=== PATIENT | female | born 1955 | race Caucasian/White ===

== ENCOUNTER 2021-03-29 14:08 | Outpatient (REF) | payer BC, SELFPAY ==
--- NOTE | ~2021-03-29 | MM_ITS ---
EXAMINATION: MM SCREENING DIGITAL BREAST TOMOSYNTHESIS, BILATERAL CLINICAL INFORMATION: Screening. Asymptomatic. Family history breast cancer, sister. Prior history left stereotactic biopsy 02/21/2010 (radial scar with focal ADH) status post excisional biopsy 03/07/2010. Also history benign left MR biopsy 12/14/2015 (benign fatty breast tissue with focal adenosis). The lifetime risk of breast cancer based on the Tyrer-Cuzick Model is 24%. COMPARISON: Mammography: 09/10/2019, 06/10/2018, 12/14/2015, 11/13/2015 TECHNIQUE: Digital breast tomosynthesis is performed in both the craniocaudal and mediolateral oblique views along with computer-aided detection (CAD). Synthesized 2D images are generated from the tomosynthesis. FINDINGS: There are scattered areas of fibroglandular density (ACR BI-RADS breast composition Category b). There are no significant masses, abnormal calcifications, or other abnormalities. Parenchymal pattern is similar to prior studies. No developing density. No skin significant changes. Again, there is a biopsy clip marker central lower left breast mid depth. MM/MM tomosynthesis screening BI IMPRESSION: No mammographic no evidence of malignancy. ASSESSMENT: BI-RADS 1: Negative RECOMMENDATION: 1. Routine annual mammography screening. 2. The lifetime risk of breast cancer based on the Tyrer-Cuzick Model is 24%. Additional annual adjunct screening with breast MRI may be of benefit in women with a risk score of 20% or greater. This patient's information was entered into a reminder system with a target due date for their next mammogram.
== END 2021-03-29 14:09 | disposition home or self-care (01) ==
LOC: HO.MAMMO 14:08
PROVIDERS: PCP Family Medicine; Visit Provider Family Medicine
DX: Z12.31 Encounter for screening mammogram for malignant neoplasm of breast (principal)
CPT/HCPCS: 77063; 77067

== ENCOUNTER 2022-04-01 13:29 | Outpatient (REF) | payer BC, SELFPAY ==
--- NOTE | ~2022-04-01 | MM_ITS ---
EXAMINATION: MM SCREENING DIGITAL BREAST TOMOSYNTHESIS, BILATERAL CLINICAL INFORMATION: Screening. Asymptomatic. 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 Benign left MR biopsy 2016 (focal adenosis). The lifetime risk of breast cancer based on the Tyrer-Cuzick Model is 23%. COMPARISON: Mammography: 03/29/2021, 09/10/2019, 06/10/2018 TECHNIQUE: Digital breast tomosynthesis is performed in both the craniocaudal and mediolateral oblique views along with computer-aided detection (CAD). Synthesized 2D images are generated from the tomosynthesis. FINDINGS: There are scattered areas of fibroglandular density (ACR BI-RADS breast composition Category b). Parenchymal pattern is similar to prior exams. There is a biopsy clip marker again noted central left breast. Neither breast shows developing density or interval mass or architectural abnormality. No abnormal calcifications. Skin contours are smooth. No significant changes. MM/MM tomosynthesis screening BI IMPRESSION: No mammographic evidence of malignancy. ASSESSMENT: BI-RADS 1: Negative RECOMMENDATION: Routine annual mammography screening. This patient's information was entered into a reminder system with a target due date for their next mammogram.
== END 2022-04-01 13:30 | disposition home or self-care (01) ==
LOC: HO.MAMMO 13:29
PROVIDERS: PCP Family Medicine; Visit Provider Family Medicine
DX: Z12.31 Encounter for screening mammogram for malignant neoplasm of breast (principal)
CPT/HCPCS: 77063; 77067

== ENCOUNTER → 2023-09-19 13:30 | Outpatient (BNV) | payer BC, SELFPAY | PROVIDERS: PCP Nurse Practitioner; Visit Provider Radiology Diagnostic Radiology | DX: Z12.31 Encounter for screening mammogram for malignant neoplasm of breast (principal) | CPT/HCPCS: 77063; 77067 ==

== ENCOUNTER 2023-09-19 13:34 | Outpatient (REF) | payer BC, SELFPAY ==
--- NOTE | ~2023-09-19 | MM_ITS ---
EXAMINATION: MM SCREENING DIGITAL BREAST TOMOSYNTHESIS, BILATERAL CLINICAL INFORMATION: Screening. Asymptomatic. The patient is status post left breast excision for atypical ductal hyperplasia into a radial scar in 2009. The patient had a benign left MRI biopsy in 2016. COMPARISON: Mammography: This study is compared with prior exams dating back to 2018. TECHNIQUE: Digital breast tomosynthesis is performed in both the craniocaudal and mediolateral oblique views along with computer-aided detection (CAD). Synthesized 2D images are generated from the tomosynthesis. FINDINGS: There are scattered areas of fibroglandular density (ACR BI-RADS breast composition Category b). There are no significant masses, abnormal calcifications, or other abnormalities. There is a tissue marker in the left breast from prior biopsy. MM/MM tomosynthesis screening BI IMPRESSION: No mammographic evidence of malignancy. ASSESSMENT: BI-RADS BI-RADS 2 - Benign Findings RECOMMENDATION: Routine annual mammography screening. 1 year F/U This examination should not preclude the clinical evaluation of a suspicious palpable abnormality. This patient's information was entered into a reminder system with a target due date for their next mammogram.
== END 2023-09-19 13:35 | disposition home or self-care (01) ==
LOC: HO.MAMMO 13:34
PROVIDERS: PCP Nurse Practitioner; Visit Provider Family Medicine
DX: Z12.31 Encounter for screening mammogram for malignant neoplasm of breast (principal)
CPT/HCPCS: 77063; 77067

== ENCOUNTER → 2024-12-17 09:30 | Outpatient (BNV) | payer BC, SELFPAY | PROVIDERS: PCP Nurse Practitioner; Visit Provider Internal Medicine | DX: N63.21 Unspecified lump in the left breast, upper outer quadrant (principal); N63.23 Unspecified lump in the left breast, lower outer quadrant | CPT/HCPCS: 76642; 77062; 77066 ==

== ENCOUNTER 2024-12-17 09:31 | Outpatient (REF) | payer BC, SELFPAY ==
--- NOTE | ~2024-12-17 | US_ITS ---
EXAMINATION: MM DIAGNOSTIC DIGITAL BREAST TOMOSYNTHESIS, BILATERAL Left breast ultrasound. CLINICAL INFORMATION: History of ADH status post left breast excisional biopsy. Left breast palpable lump noticed 2 months ago, pruritis of left nipple. Family history of breast cancer including sister. COMPARISON: Mammography: Comparison is made with relevant prior exams. TECHNIQUE: Digital breast mammography with tomosynthesis is performed in both the craniocaudal and mediolateral oblique views along with computer-aided detection (CAD). FINDINGS: There are scattered areas of fibroglandular density (ACR BI-RADS breast composition Category b). Left: Post excisional biopsy changes are stable. Marker clip in the left breast. BB marker retroareolar region with an underlying oval 6 mm mass. No suspicious calcifications or other abnormal findings. Targeted color Doppler ultrasound scanning in the left breast area of patient's palpable lump demonstrates at 3:00 2 cm from the nipple a subdermal oval hypoechoic solid mass versus complicated cyst measuring 6 x 3 x 3 mm. This could represent a minimally complicated cyst versus solid mass versus sebaceous cyst. Right: There are no significant masses, abnormal calcifications, or other abnormalities. Results are provided to the patient at time of visit by the technologist. US/US breast LT limited mamm only IMPRESSION: Right: Negative. Left: Hypoechoic oval solid mass versus complicated cyst at 3:00 2 cm from the nipple at the area of the patient's palpable lump. This could represent a minimally complicated cysts solid mass or sebaceous cyst. Recommend 6 month follow-up ultrasound for further evaluation of stability. ASSESSMENT: BI-RADS BI-RADS 3 - Probably benign finding(s) - 6 month follow-up suggested RECOMMENDATION: 6 Month F/U This patient's information was entered into a reminder system with a target due date for their next mammogram. Electronically signed by: Cathy Rodriguez DO 12/17/2024 10:34 AM EDT
--- OUTSIDE RECORDS SUMMARY | 2024-12-17 09:43 | XMS_ITS | Data Portability ---
Author Organization [place] [facility], [facility] - INPATIENT Address [address] [place] [address] Care Team Providers Care Card Decorator Name Role Phone MIRIAM LEDBETTER Primary Care Provider Assessment Encounter Date Assessment Date Assessment LastModified by Organization Details LastModified Time 01/29/2024 01/29/2024 Imaging: Radiographs obtained in outside facility on 12/11/2023 including AP pelvis and left frog-leg lateral were reviewed. These demonstrate fairly significant left hip joint space narrowing with osteophyte formation and subchondral sclerosis. A left hip MRI was obtained at an outside facility on 01/13/2024 and independently reviewed today. This demonstrates evidence of fairly advanced left hip osteoarthritis with cartilage loss, subchondral cysts, and osteophytes. There is also evidence of a mild impaction fracture of the superior femoral head with extensive marrow edema and mild femoral head flattening. There is a fluid collection in the left iliopsoas myotendinous junction. Assessment: Left hip pain likely due to advanced osteoarthritis as well as a traumatic impaction fracture status post mechanical fall. Plan: The findings were reviewed with the patient. Discussed that she does have fairly advanced degenerative changes as well as likely traumatic injuries to the left hip. Given that she has significant pain with daily activities and had no relief with conservative measures including a steroid injection I would not recommend any further conservative measures. I would recommend more definitive treatment with a left total hip arthroplasty, anterior approach. The perioperative course of total hip arthroplasty was discussed in detail including risk versus benefits of surgical intervention. The patient expressed understanding wishes to proceed. Will plan to move forward with a left total hip arthroplasty, anterior at [facility]. She is in agreement with this plan. All questions were answered. [email or web address] Not available 03/05/2024 17:23:16 Plan of Treatment Reminders Order Date Submit Date Provider Last Modified By Organization Details Last Modified Time Details Appointments None recorded. Lab None recorded. Referral None recorded. Procedures None recorded. Surgeries None recorded. Imaging None recorded. Medication Orders oxycodone 5 mg tablet 2022 023 [email or web address] 5 [facility], [address] [place], [address], 4 11:42:54 Patient TargetsNo targets recorded. Patient InstructionsNo instructions recorded. Reason for Referral None Reported. Results Created Date Observation Date Name Description Value Unit Range Abnormal Flag Note LastModifiedBy Organization Detail LastModifiedTime 09/13/1909/13/2022 SURG surgical specimens Case No :[id number] Patie nt: INOCENCIA BRENNAN Physi pat: Gosia naqvi MD,An dominik J [facility] Rec: [id number] : 11/15 Loc: [facility]# [id number] Age/S ex: 66/F Proc Date: 09/13 Recd Date: 09/16 CLINI MICHELL HISTO RY:Os teoar thrit is left knee. Tissu e Sourc e: Left knee bone and soft tissu e ----- ----- ----- ----- ----- ----- ----- ----- ----- ----- ----- ----- ----- ----- ----- ----- ----- ----- -- FINAL DIAGN OSIS Left knee joint : Angel armas consi stent with osteo arthr itis (sree s descr iptio n only) . ----- ----- ----- ----- ----- ----- ----- ----- ----- ----- ----- ----- ----- ----- ----- ----- ----- ----- -- GROSS DESCR IPTIO N The speci men is recei reggie fresh , label ed with the patie nt's name and left knee bone and tissu e . It consi sts of multi ple fragm ents of bone and soft tissu e measu ring in aggre gate 10 x 9.5 x 3.5 cm. Among the bony fragm ents, porti ons of tibia l plate au and femor al condy les are ident ified . The artic ular surfa teresa show areas of eburn ation , with the remai andrews carti phi being rough and velve ty. Osteo phyto sis is seen. Upon secti oning the soft tissu e, no nodul es are ident ified . Gross only. Krystina duncan ___(E lectr sirisha duncan)___ _ STARR ROMAN M.D. 09/18 ----- ----- ----- ----- ----- ----- ----- ----- ----- ----- ----- ----- ----- ----- ----- ----- ----- ----- -- END OF REPOR T Not Available [facility] (Lab) [address], [place], [address], 09/18/2022 17:32:50 04/02/20 24 04/02/2024 CBC WBC 8.18 K/uL 4.00-1 1.00 Not Available [facility] - Lab [address], [place], [address], 04/02/2024 13:21:20 04/02/20 24 04/02/2024 CBC RBC 4.55 M/uL 3.60-5 .30 Not Available [facility] - Lab [address], [place], [address], 04/02/2024 13:21:20 04/02/20 24 04/02/2024 CBC hemoglobin 14.6 g/dL 12.0-1 6.0 Not Available [facility] - Lab [address], [place], [address], 04/02/2024 13:21:20 04/02/20 24 04/02/2024 CBC hematocrit 42.9 % 36.0-4 8.0 Not Available [facility] - Lab [address], [place], [address], 04/02/2024 13:21:20 04/02/20 24 04/02/2024 CBC MCH 32.1 pg 27.0-3 4.0 Not Available [facility] - Lab [address] [place] [address], [place], [address], 04/02/2024 13:21:20 04/02/20 24 04/02/2024 CBC MCHC 34.0 g/dL 31.0-3 6.0 Not Available [facility] - Lab [address] [place] [address], [place], [address], 04/02/2024 13:21:20 04/02/2004/02/2024 CBC MCV 94 fL 80-98 Not Available [facility] - Lab [address] [place] [address], [place], [address], 04/02/2024 13:21:20 04/02/2004/02/2024 CBC RDW 12.1 % 11.5-1 4.5 Not Available [facility] - Lab [address], [place], [address], 04/02/2024 13:21:20 04/02/2004/02/2024 CBC platelet count 309 K/uL 150-40 0 Not Available [facility] - Lab [address], [place], [address], 04/02/2024 13:21:20 04/02/20 24 04/02/2024 CBC mean platelet volume 8.9 fL 9.4-12 .4 low Not Available [facility] - Lab [address], [place], [address], 04/02/2024 13:21:20 04/02/20 24 04/02/2024 CBC RDW-SD 42.4 fL 35.1-4 6.3 Not Available [facility] - Lab [address], [place], [address], 04/02/2024 13:21:20 04/02/20 24 04/02/2024 BASIC METAB OLIC PANEL sodium 139 mmol/ L 135-14 5 Not Available [facility] - Lab [address], [place], [address], 04/02/2024 13:30:34 04/02/20 24 04/02/2024 BASIC METAB OLIC PANEL potassium 4.7 mmol/ L 3.5-5. 3 Not Available [facility] - Lab [address], [place], [address], 04/02/2024 13:30:34 04/02/20 24 04/02/2024 BASIC METAB OLIC PANEL chloride 103 mmol/ L 100-11 2 Not Available [facility] - Lab [address], [place], [address], 04/02/2024 13:30:34 04/02/20 24 04/02/2024 BASIC METAB OLIC PANEL total CO2 26 mmol/ L 21-30 Not Available [facility] - Lab [address], [place], [address], 04/02/2024 13:30:34 04/02/20 24 04/02/2024 BASIC METAB OLIC PANEL anion gap 10 mmol/ L 4-20 Not Available [facility] - Lab [address], [place], [address], 04/02/2024 13:30:34 04/02/20 24 04/02/2024 BASIC METAB OLIC PANEL BUN 14 mg/dL 6-20 Not Available [facility] - Lab [address], [place], [address], 04/02/2024 13:30:34 04/02/20 24 04/02/2024 BASIC METAB OLIC PANEL creatinine 0.80 mg/dL 0.00-1 .30 Not Available [facility] - Lab [address], [place], [address], 04/02/2024 13:30:34 04/02/20 24 04/02/2024 BASIC METAB OLIC PANEL glucose 102 mg/dL 70-105 Not Available [facility] Lab [address], [place], [address], 04/02/2024 13:30:34 04/02/20 24 04/02/2024 BASIC METAB OLIC PANEL calcium 10.0 mg/dL 8.4-10 .2 Not Available [facility] Lab [address], [place], [address], 04/02/2024 13:30:34 04/02/20 24 04/02/2024 BASIC METAB OLIC PANEL estimated GFR (CKD-epi) 80 mL/mi n/bsa >=60 Not Available [facility] Lab [address], [place], [address], 04/02/2024 13:30:34 04/02/20 24 04/02/2024 MRSA/ SA BY PCR MRSA/SA by PCR Negati ve for Methic illin Resist ant Staphy lococc us aureus . negati ve for methic illin resist ant staphy lococc us aureus . Not Available [facility] Lab [address], [place], [address], 04/02/2024 16:42:52 04/09/20 24 04/09/2024 SURGI MICHELL PATHO LOGY TISSU E EXAM lab AP case report Surgi michell Patho logy Repor t Case: [id number] CASE REPOR T Surgi michell Patho logy Repor t Case: [id number] Autho stella nelli Provi kay: Hayden naqvi MD Colle cted: 04/09 12:15 PM Order ing Locat ion: [facility] Recei reggie: 04/09 02:57 PM Hospi [facility] [place] Patho logis t: Starr Roman MD Speci men: Joint , Hip, Left hip bone and tissu e FINAL DIAGN OSIS Left hip joint : Ortiz es consi stent with osteo arthr itis (sree s descr iptio n only) . Elect blas kellee fowlere d by Starr Roman MD on 2023 at 4:42 PM BILH CLINI MICHELL INFOR MATIO N Pre-o p diagn osis: Left hip osteo arthr itis LH LAB GROSS DESCR IPTIO N The speci men is recei reggie fresh , label ed with the patie nt's name and left hip bone and tissu e . It consi sts of a femor al head, bone grind ings and soft tissu e measu ring 9 x 8.5 x 4 cm in aggre gate. The femor al head measu res [address] and is resec guzman with up to a 1.5 cm of attac hed femor al neck. The artic ular surfa ce shows areas of eburn ation of appro ximat tristan 40%, with the remai andrews carti phi being rough and velve ty. Osteo phyto sis is seen. Secti oning demon strat es subch ondra l scler osis under neath the eburn ated areas . Upon secti oning the soft tissu es, no nodul es are ident ified . Gross only. Not Available [facility] - Lab [address], [place], [address], 04/12/2024 16:42:28 04/10/20 24 04/10/2024 CBC WBC 11.41 K/uL 4.00-1 1.00 high Not Available [facility] - Lab [address], [place], [address], 04/10/2024 09:28:00 04/10/20 24 04/10/2024 CBC RBC 3.30 M/uL 3.60-5 .30 low Not Available [facility] - Lab [address], [place], [address], 04/10/2024 09:28:00 04/10/20 24 04/10/2024 CBC hemoglobin 10.3 g/dL 12.0-1 6.0 low Not Available [facility] - Lab [address], [place], [address], 04/10/2024 09:28:00 04/10/20 24 04/10/2024 CBC hematocrit 31.5 % 36.0-4 8.0 low Not Available [facility] Lab [address], [place], [address], 04/10/2024 09:28:00 04/10/20 24 04/10/2024 CBC MCH 31.2 pg 27.0-3 4.0 Not Available [facility] Lab [address], [place], [address], 04/10/2024 09:28:00 04/10/20 24 04/10/2024 CBC MCHC 32.7 g/dL 31.0-3 6.0 Not Available [facility] - Lab [address], [place], [address], 04/10/2024 09:28:00 04/10/20 24 04/10/2024 CBC MCV 96 fL 80-98 Not Available [facility] [address], [place], [address], 04/10/2024 09:28:00 04/10/20 24 04/10/2024 CBC RDW 12.2 % 11.5-1 4.5 Not Available [facility] Lab [address], [place], [address], 04/10/2024 09:28:00 04/10/20 24 04/10/2024 CBC platelet count 208 K/uL 150-40 0 Not Available [facility] Lab [address], [place], [address], 04/10/2024 09:28:00 04/10/20 24 04/10/2024 CBC mean platelet volume 9.1 fL 9.4-12 .4 low Not Available [facility] - Lab [address], [place], [address], 04/10/2024 09:28:00 04/10/20 24 04/10/2024 CBC RDW-SD 42.5 fL 35.1-4 6.3 Not Available [facility] Lab [address], [place], [address], 04/10/2024 09:28:00 04/10/20 24 04/10/2024 BASIC METAB OLIC PANEL sodium 139 mmol/ L 135-14 5 Not Available [facility] - Lab [address], [place], [address], 04/10/2024 10:18:15 04/10/20 24 04/10/2024 BASIC METAB OLIC PANEL potassium 4.4 mmol/ L 3.5-5. 3 Not Available [facility] Lab [address], [place], [address], 04/10/2024 10:18:15 04/10/20 24 04/10/2024 BASIC METAB OLIC PANEL chloride 105 mmol/ L 100-11 2 Not Available [facility] Lab [address], [place], [address], 04/10/2024 10:18:15 04/10/20 24 04/10/2024 BASIC METAB OLIC PANEL total CO2 28 mmol/ L 21-30 Not Available [facility] Lab [address], [place], [address], 04/10/2024 10:18:15 04/10/20 24 04/10/2024 BASIC METAB OLIC PANEL anion gap 6 mmol/ L 4-20 Not Available [facility] - Lab [address], [place], [address], 04/10/2024 10:18:15 04/10/20 24 04/10/2024 BASIC METAB OLIC PANEL BUN 17 mg/dL 6-20 Not Available [facility] - Lab [address], [place], [address], 04/10/2024 10:18:15 04/10/20 24 04/10/2024 BASIC METAB OLIC PANEL creatinine 0.70 mg/dL 0.00-1 .30 Not Available [facility] - Lab [address], [place], [address], 04/10/2024 10:18:15 04/10/20 24 04/10/2024 BASIC METAB OLIC PANEL glucose 132 mg/dL 70-105 high Not Available [facility] Lab [address], [place], [address], 04/10/2024 10:18:15 04/10/20 24 04/10/2024 BASIC METAB OLIC PANEL calcium 8.7 mg/dL 8.4-10 .2 Not Available [facility] Lab [address], [place], [address], 04/10/2024 10:18:15 04/10/20 24 04/10/2024 BASIC METAB OLIC PANEL estimated GFR (CKD-epi) 94 mL/mi n/bsa >=60 Not Available [facility] Lab [address], [place], [address], 04/10/2024 10:18:15 04/10/20 24 04/10/2024 MAGNE SIUM magnesium 2.0 mg/dL 1.6-2. 6 Not Available [facility] Lab [address], [place], [address], 04/10/2024 10:18:25 12/27/19 22 12/26/2021 XR, knee http:/ [email or web address] ntegra tionPr ocesso r.aspx ?CMD=O PENSTU DY&ACC ESSION =[id number] [email or web address] [address], [address], 12/26/2021 14:45:18 04/08/20 22 04/08/2022 XR, knee http:/ [email or web address]/I ntegra tionPr ocesso r.aspx ?CMD=O PENSTU DY&ACC ESSION =[id number] [email or web address], [address], 04/08/2022 15:56:12 08/07/20 22 08/07/2022 leg2+ joint s surve y 3FT Fin al Report EXAM#: [id number] 4 PROCED URE: RADHA 0122 XR LEG2+ JOINTS SURVEY 3FT Aug 07 2022 1:28PM CLINIC AL INDICA TION: L KNEE OA There is a right TKA in place. Degene rative change s are presen t in the left knee with comple te loss of the medial joint compar tment space and cortic al irregu larity of the articu lar surfac es of the medial and latera l joint compar tments . The hip and the ankle joints are unrema rkable . NUMBER OF IMAGES : 4 Report ed by : MERYL GRANADOS M.D. On: Aug 07 2022 1:46P Signed by: MERYL GRANADOS M.D. On: Aug 07 2022 1:46P [email or web address] [facility] [address], [place], [address], 08/08/2022 08:50:48 01/29/20 24 01/13/2024 MRI, hip, w/o contr ast No observ ation record ed. [email or web address] Not Available 01/28 11:37:15 Result Notes None recorded. Procedures Surgical History Date Name Laterality Status Provider Name and Address Organization Details Recorded Time 04/09/20 24 Orthopaedic Surgery completed Alexandre Hernandez [facility] 04/28/2024 13:21:25 09/13/19 23 Total knee arthroplasty completed Pita Marvin [facility] 09/20/2022 12:21:14 11/24/19 22 [facility] 12/18/2021 16:02:20 08/25/19 14 Other completed [facility] 08/27/2021 11:29:50 Imaging Results Imaging Date Name Status LastModified by Organiz ation Details LastModified Time 12/26/2021 XR, knee completed [email or web address] [facility] [address], [address], 12/26/2021 14:45:18 04/08/2022 XR, knee completed [email or web address] [address], [address], 04/08/2022 15:56:12 08/07/2022 leg2+ joints survey 3FT completed [email or web address] [facility] [address] [place], [address], 08/08/2022 08:50:48 01/13/2024 MRI, hip, w/o contrast completed [email or web address] Information not available 01/29/2024 11:37:15 Procedure Notes None recorded. Medical Equipment None Reported. Allergies No known drug allergies Medications Name Sig Start Date Stop Date Status Note LastModified by Organization Details LastModified Time lisinopril 20 mg tablet Take 1 tablet every day by oral route. active Not Available Not Available No t Available Wellbutrin SR 100 mg tablet, 12 hr sustained-r elease Take 1 tablet twice a day by oral route. active Not Available Not Available No t Available modafinil 200 mg tablet Take 1 tablet every day by oral route. active Not Available Not Available No t Available methocarbam ol 750 mg tablet 1 tablet PO Q8H PRN muscle spasms 01/28 completed Not Available Not Available Not Available omeprazole 20 mg capsule,del ayed release Take 1 capsule every day by oral route. active Not Available Not Available No t Available oxycodone 5 mg tablet 1 tablet PO Q4-6H PRN postop pain, take lowest dose necessary for pain control 05/26 completed Not Available Not Available Not Available Vitamin B6 100 mg tablet Take by oral route. active Not Available Not Available No t Available buprenorphi ne 2 mg-naloxone 0.[address] 2 tablets every day by sublingua l route. active Not Available Not Available No t Available Cymbalta 60 mg capsule,del ayed release Take 1 capsule every day by oral route. active Not Available Not Available No t Available Vitamin B12 active Not Available Not A vailable Not Available Pradaxa 150 mg capsule Take 1 capsule twice a day by oral route. active Not Available Not Available No t Available Zomig 2.5 mg nasal spray Take by nasal route. active Not Available Not Available No t Available tramadol 100 mg tablet Take 1 tablet every 12 hours by oral route. 05/26 completed Not Available Not Available Not Available Vitals Date Recorded Body height Body mass index (BMI) Body weight Provider Name and Address Organization Details Last Updated DateTime 12/26/2021 167.64 cm 30.7 kg/m2 36580.55 g AISLINN RIVERA [address] [place] [address] [facility] 12/26/2021 13:20:19 Date Recorded Body height Provider Name an d Address Organization Details Last Updated DateTime 04/08/2022 167.64 cm Tuyet [facility] 04/08/2022 12:52:31 Date Recorded Body height Body mass index (BMI) Body weight Provider Name and Address Organization Details Last Updated DateTime 10/16/2022 167.64 cm 30.7 kg/m2 04203.55 g AISLINN RIVERA [address] [place] [address] [facility] 10/16/2022 13:59:38 Date Recorded Body height Body mass index (BMI) Body weight Provider Name and Address Organization Details Last Updated DateTime 01/29/2024 167.64 cm 29.4 kg/m2 42097.81 g Fouzia Antonio [facility] 01/29/2024 11:42:27 Date Recorded Body height Body mass index (BMI) Body weight Provider Name and Address Organization Details Last Updated DateTime 05/26/2024 167.64 cm 29.9 kg/m2 32252.59 g AISLINN RIVERA [address] [place] [address], [id number], [facility] 05/26/2024 15:16:02 Social History Question Answer Notes LastModified by Organizat ion Details LastModified Time Tobacco Smoking Status Former Smoker Pita Marvin [facility], [facility] 08/27/2021 11:29:47 What Is Your Level Of Alcohol Consumption? Moderate Information not available 08/27/2021 What Is Your Level Of Caffeine Consumption? Moderate Information not available 08/27/2021 Are You Currently Employed? Yes [email or web address] Information not available 01/29/2024 Do You Or Have You Ever Used E-cigarettes Or Vape? 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 Yes Information not available 08/27/2021 Do You Or Have You Ever Used Smokeless Tobacco? Never Used Smokeless Tobacco Information not available 08/27/2021 How Much Tobacco Do You Smoke? No Information not available 08/27/2021 What Types Of Sporting Activities Do You Participate In? None Information not available 08/27/2021 How Many Years Have You Smoked Tobacco? 25 Information not available 08/27/2021 Sex: Unknown Functional Status Question Answer Note LastModified by Organizat ion Details LastModified Time What is your exercise level? Occasional Information not available 08/27/2021 Mental Status None recorded. Family History Relationship Description Onset Age of this Age Resolved Age Notes LastModified by Organization Details LastModified Time Father Pulmonary embolism Not available 10/2021 11:29:42 Mother Deep venous thrombosis [email or web address] Not available 10/2021 11:29:42 Mother Phlebitis [email or web address] Not avail able 08/27/2021 11:29:42 Medical History Condition Response Blood Clots / Phlebitis Y Heart Problems N HIV or AIDS N Depression or Anxiety N High Blood Pressure Y Irregular Heartbeat N MRSA N Emphysema / Chronic Bronchitis N Any Other Significant Medical Issues N Reaction to General/Local Anesthesia N Weight Gain / Loss N Hepatitis / Jaundice N Kidney / Bladder Infections N Diabetes N Bleeding Disorder Y Hearing Loss N Angina, Heart Failure or Attack N Night Sweats N Seizures / Epilepsy N Osteoarthritis / Rheumatoid arthritis / Other Y Cancer N Stroke N Chemical Dependency / Alcoholism N Ulcer / Stomach Bleeding / Indigestion N Visual Loss or Glaucoma N Psoriasis / Skin Rash N Thyroid Disorder Y Heart Disease N Asthma / Shortness of Breath / 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 Obstetrics History GPAL:G 0 P 0 0 0 0 Immunizations Vaccine Type Date Status Note Provider Nam e and Address Organization Details Recorded Time COVID-19, mRNA, LNP-S, PF, 30 mcg/0.3 mL dose 1 completed Pita little, [facility] 08/27/2021 11:38:23 COVID-19, mRNA, LNP-S, PF, 30 mcg/0.3 mL dose 1 completed Pita little, [facility] 08/27/2021 11:38:30 COVID-19, mRNA, LNP-S, PF, 30 mcg/0.3 mL dose 1 completed Pita little, [facility] 08/27/2021 11:38:40 Influenza, split virus, quadrivalent, preservative 1 completed Pita little, [facility] 08/27/2021 11:38:53 Past Encounters Encounter ID Performer Location Encounter Start Date Encounter Closed Date Diagnosis/Indication Diagnosis SNOMED-CT Code Diagnosis ICD10 Code Diagnosis Note [id number] СЕРГЕЙ GALVAN MD [facility] Office [address] [place] [address] [id number] 08/27/2021 10:19:04 08/27/2021 12:17:26 Bilateral osteoarthritis of knees [id number] 78891 M17.0 [id number] AISLINN RIVERA [facility] [address] [place] [address] [id number] 1 12/26/2021 12:38:05 12/26/2021 14:02:00 Osteoarthritis of right knee joint [id number] 27558 M17.11 The patient is doing very well s/p right TKA. We discussed reasonable activity at this point in recovery. The patient will complete a course of outpatient PT and transition to a home exercise program. The patient understand s to wait 90 days from the day of surgery before having dental work and was reminded of antibiotic prophylaxi s prior to dental procedures . The patient knows to follow-up at 4 months postop and agrees to call the office sooner with any new developmen ts, questions or concerns. [id number] СЕРГЕЙ GALVAN MD [facility] [address] [place] [address] [id number] 1 04/08/2022 12:32:53 04/08/2022 16:55:27 Bilateral osteoarthritis of knees [id number] 10668 M17.0 [id number] AISLINN RIVERA [facility] [address] [place] [address] [id number] 10/16/2022 13:14:33 10/16/2022 14:35:15 Osteoarthritis of left knee joint [id number] 94848 M17.12 The patient is doing well s/p left TKA. We discussed reasonable activity at this point in recovery. T I encouraged her to t focus on managing pain and weaning from oxycodone. She understand s to wean from oxycodone over the next 2 weeks. I will provide her with a refill today. She will supplement with Salonpas patches and Tylenol around-the -clock. She will attend outpatient PT. The patient understand s to wait 90 days from the day of surgery before having dental work and was reminded of antibiotic prophylaxi s prior to dental procedures . The patient knows to follow-up at 4 months postop and agrees to call the office sooner with any new developmen ts, questions or concerns. [id number] AISLINN MAHMOOD [facility] [address] [place] [phone] 01/29/2024 11:23:45 01/29/2024 15:23:13 Osteoarthritis of left hip joint [id number] M16.12 [id number] AISLINN RIVERA [facility] [address] [place] [phone] 05/26/2024 14:34:09 05/27/2024 09:16:02 Osteoarthritis of left hip joint [id number] M16.12 The patient is doing well s/p LON. We discussed reasonable activity at this point in recovery. {{The patient will complete a course of outpatient PT.*}} She will plan to reach out to us once she feels she is ready to return to work to further discuss a plan in that regard. The patient understand s to wait 90 days from the day of surgery before having dental work and was reminded of antibiotic prophylaxi s prior to dental procedures . The patient knows to follow-up at {{4 months postop one year postop*}} and agrees to call the office sooner with any new developmen ts, questions or concerns. Health Concerns Section Related Observation LastModified by Organization Detai ls LastModified Time None Recorded Concern Status LastModified by Organization Details LastModified Time None Recorded Advance Directives Directive None Recorded Payers Encounter Date Sequence Insurance Name Policy Number Policy Haw[employer]orne Covered Member ID [employer] Member ID Guarantor Name 12/26/2021 1 [place] [id number] Sarmad Chandra [id number] Twyla Geoffrion 04/08/2022 1 [place] [id number] Sarmad Chandra [id number] Twyla Geoffrion 10/16/2022 1 [place] [id number] Sarmad Chandra [id number] Twyla Geoffrion 01/29/2024 1 [place] [id number] 4 Sarmad Chandra [id number] 04 Twyla Geoffrion 05/26/2024 1 [place] [id number] 4 Sarmad Chandra [id number] Twyla Galeanoangus Notes Date Note Type Note Provider Name and Address Organization Details Recorded Time 12/26/2021 text/html Pt is 4 weeks s/ p {{left right* bilate ral}} TKA presenting today without complaints. The patient is ambulating without the use of an assistive device. Reports improvement in pain over the last 4 weeks and has weaned from narcotics. Satisfied with progress with physical therapy. Sleep has improved. AISLINN RIVERA [address] [place] [address], [phone], [facility] 12/26/2021 13:58:31 10/16/2022 text/html Pt is 4 weeks s/ p {{left* right bilate ral}} TKA presenting today for routine follow-up. The patient is ambulating without the use of an assistive device. Reports improvement in pain, but recently had a setback after mechanical fall and hyperextension to this knee. S She continues to take oxycodone s every 6 hours along with Tylenol. She avoids NSAIDs as she is on chronic Pradaxa. She is supplementing with Salonpas. She reports some increased swelling and pain to the knee since this injury. She has completed her course of at home PT and has plans to begin outpatient PT tomorrow. She still has difficulty with pain at night. AISLINN RIVERA [address] [place] [address], [phone], [facility] 10/16/2022 14:28:44 01/29/2024 text/html Twyla presents today for evaluation of her left hip. She reports a mechanical fall in September that initially resulted in left hip pain that did improve. However, she was then pulled while walking a dog in October which resulted in a fairly significant fall on the driveway. After that she began to develop fairly significant left hip pain. This causes significant difficulty with walking, stairs, sleeping, and prolonged sitting. She reports that the hip feels unstable. She underwent an intra-articular steroid injection under ultrasound guidance in November that did not provide any lasting relief. She underwent evaluation at an outside facility more local to her home. She presents today for further evaluation. AISLINN MAHMOOD [address] [place] [address], [phone], [facility] 03/05/2024 17:24:52 05/26/2024 text/html Pt is 6 weeks s/ p {{left* right}} LON presenting today for routine follow-up. The patient is ambulating without the use of an assistive device. Reports improvement in pain over the last 6 weeks. She reports worsening of her restless leg syndrome since surgery which is affecting her sleep. AISLINN RIVERA [address] [place] [address], [place], [phone], [facility] 05/26/2024 15:54:27 OBGyn Episode No OBEpisode recorded.
== END 2024-12-17 09:32 | disposition home or self-care (01) ==
LOC: HO.MAMMO 09:31
PROVIDERS: PCP Nurse Practitioner; Visit Provider Nurse Practitioner
DX: R92.8 Other abnormal and inconclusive findings on diagnostic imaging of breast (principal)
CPT/HCPCS: 76642; 77062; 77066

== ENCOUNTER 2025-01-25 10:24 | Outpatient (AMB) | payer BC, SELFPAY ==
--- NOTE | 2025-01-25 10:27 | MHC.OFFVIS ---
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 Patient has CT ABD/Pelvis on 01/06/2025. No complaints. 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 The CT was conducted for gastrointestinal issues linked to diverticulosis. . Her significant medical history includes homocystinuria, previously treated thromboses in various locations, and a hospitalization for bilateral pulmonary embolism in 2005. 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 Post-hip replacement surgery, the patient experienced significant hemorrhage, which led to prolonged anemia. 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 Her anticoagulation history includes use of Pradaxa due to insurance preferences after Coumadin proved ineffective. Her insurance restrictions also impact her ability to switch to Eliquis. Given these factors, the patient seeks expert evaluation on the potential need for intervention and surveillance regarding her aortic condition. She now presents for vascular evaluation Review of Systems Const All systems reviewed & are unremarkable except as noted in HPI and below Reports no additional complaints ENT Reports Normal hearing present Card Denies chest pain, Denies chest pain at rest, Denies chest pain with activity and Denies pedal edema Resp Denies cough GI Denies abdominal pain Musc Denies abnormal gait, Denies muscle cramps and Denies radiating pain into limb Skin/Breast Denies skin ulcer and Denies wounds Neuro Reports Normal hearing present and Denies abnormal gait Psych Reports no additional complaints Physical Exam Const General: cooperative, healthy appearing and comfortable Orientation/consciousness: oriented to person, oriented to place and oriented to time HEENT Head: Yes normal to inspection Neck Neck: Yes normal visual inspection Carotids: no bruits Chest Chest palpation & inspection: normal inspection of the chest Resp Effort & Inspection: normal respiratory effort and able to speak in complete sentences Auscultation: clear to auscultation bilaterally, no crackles, no rales, no rhonchi and no wheezes Cardio Rate: regular rate Rhythm: regular rhythm Heart sounds: S1 normal heart sound present and S2 normal heart sound present Bruits: no carotid bruits Peripheral pulses: Peripheral pulses 2+ throughout GI Inspection: Yes normal to inspection Skin Wounds: no wounds Hair: normal Neuro General: oriented to person, oriented to place and oriented to time Cranial nerves: Yes CN's II-XII intact bilaterally and Yes Normal hearing present Cognition (Neuro): normal cognition Motor exam (neuro): 5/5 motor strength present throughout Extrem Other: venous exam: No significant superficial varicosities or spider telangiectasias, minimal edema General: No clubbing, No cyanosis and No edema Psych Appearance: grossly normal Mental Status: mental status grossly normal Speech and movement: Normal speech and movement present Results Reviewed Results Reviewed: I was able to review CAT scan dated 01/06/2025 written report and images. We were able to open the images with the help of our IT as it was outside films. Maximum diameter of aorta is 2.4 and small penetrating ulcer noted within. Assessment & Plan Assessment & Plan (1) Penetrating atherosclerotic ulcer of aorta: Code(s): I71.9 - Aortic aneurysm of unspecified site, without rupture Category: Medical Plan: I discussed the findings of a penetrating aortic ulcer on recent imaging with the patient, explaining that it currently does not require surgery and warrants a follow-up CT scan in three months. We went over her current anticoagulation therapy on Pradaxa The patient expressed concerns about progression, and I reassured her of the minimal rupture risk. We explored the possibility of statin therapy for hyperlipidemia management, highlighting its importance in stabilizing plaques. The plan for further monitoring and continuation of physical therapy was also outlined. I have taken the liberty of ordering a surveillance CAT scan in approximately 3 months time. Thank you for allowing us to assist in her care. (2) Pulmonary embolism: Code(s): I26.99 - Other pulmonary embolism without acute cor pulmonale Category: Medical Qualifiers: Pulmonary embolism type: unspecified Acute cor pulmonale presence: unspecified Chronicity: unspecified Qualified Code(s): I26.99 - Other pulmonary embolism without acute cor pulmonale Plan: Patient is currently being maintained on Pradaxa. This was due to insurance. I did discuss the potential of switching over to Eliquis if her insurance allows it. It is more common generally less bleeding risk and less GI side effects as compared to Pradaxa. I did request she follow-up with her primary care team if she decides to change that. (3) Hypercholesterolemia: Code(s): E78.00 - Pure hypercholesterolemia, unspecified Category: Medical Plan: This patient has atherosclerotic cardiovascular disease and may benefit from a high-intensity statin based on the 2019 ACC and aha guidelines. Once on a high-intensity statin would monitor LFTs and renal function. This was discussed with the patient and she has been resistant to statins in the past. If she is agreeable I did request she follow-up with her primary care team regarding use of statins. Plan Patient was informed and verbally consented to the use of an ambient scribe for clinic note documentation during this visit. Orders: Orders Blood Urea Nitrogen 3 Months I71.9 - Aortic aneurysm of unspecified site, without rupture Creatinine 3 Months I71.9 - Aortic aneurysm of unspecified site, without rupture CT angio abdomen pelvis 3 Months I71.9 - Aortic aneurysm of unspecified site, without rupture Patient Instructions: - Continue current physical therapy and include core exercises once approved. - Follow up with a CT scan in three months as scheduled. - Discuss switching anticoagulation medication to Eliquis. - Consider a discussion with your primary care doctor about starting statin therapy. - Ensure adherence to any prescribed medications and report any unusual symptoms promptly. Coding Level of Care Code New Pt Level 4 (61100) Complex EM visit Add On G2211 Diagnoses Penetrating atherosclerotic ulcer of aorta I71.9 Pulmonary embolism, unspecified chronicity, unspecified pulmonary embolism type, unspecified whether acute cor pulmonale present I26.99 Pulmonary embolism type: unspecified Acute cor pulmonale presence: unspecified Chronicity: unspecified Hypercholesterolemia E78.00
--- OUTSIDE RECORDS SUMMARY | 2025-01-25 11:59 | XMS_ITS | Data Portability ---
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. She is in agreement with this plan. All questions were answered. [email or web address] Not available 03/05/2024 17:23:16 Plan of Treatment Reminders Order Date Submit Date Provider Last Modified By Organization Details Last Modified Time Details Appointments None recorded. Lab None recorded. Referral None recorded. Procedures None recorded. Surgeries None recorded. Imaging None recorded. Medication Orders oxycodone 5 mg tablet 2022 023 [email or web address] [id number] [facility], [address] [place], [address], 4 11:42:54 Patient TargetsNo targets recorded. Patient InstructionsNo instructions recorded. Reason for Referral None Reported. Results Created Date Observation Date Name Description Value Unit Range Abnormal Flag Note LastModifiedBy Organization Detail LastModifiedTime 09/13/1909/13/2022 SURG surgical specimens Case No :[id number] Patie nt: INOCENCIA BRENNAN Physi pat: Gosia naqvi MD,An dominik J [facility] Rec: [id number] : 11/15 Loc: 5E [facility]# [id number] Age/S ex: 66/F Proc Date: [...] -- END OF REPOR T Not Available [facility] (Lab) [address] [facility], [place], [address], 09/18/2022 17:32:50 04/02/20 24 04/02/2024 CBC WBC 8.18 K/uL 4.00-1 1.00 Not Available [facility] - Lab [address] [facility], [place], [address], 04/02/2024 13:21:20 04/02/20 24 04/02/2024 CBC RBC 4.55 M/uL 3.60-5 .30 Not Available [facility] - Lab [address] [facility], [place], [address], 04/02/2024 13:21:20 04/02/20 24 04/02/2024 CBC hemoglobin 14.6 g/dL 12.0-1 6.0 Not Available [facility] - Lab [address] [facility], [place], [address], 04/02/2024 13:21:20 04/02/20 24 04/02/2024 CBC hematocrit 42.9 % 36.0-4 8.0 Not Available [facility] - Lab [address] [facility], [place], [address], 04/02/2024 13:21:20 04/02/20 24 04/02/2024 CBC MCH 32.1 pg 27.0-3 4.0 Not Available [facility] - Lab [address] [place] [address], [place], [address], 04/02/2024 13:21:20 04/02/20 24 04/02/2024 CBC MCHC 34.0 g/dL 31.0-3 6.0 Not Available [facility] - Lab [address] [place] [address], [place], [address], 04/02/2024 13:21:20 04/02/2004/02/2024 CBC MCV 94 fL 80-98 Not Available [facility] - Lab [address] [place] [address], [place], [address], 04/02/2024 13:21:20 04/02/2004/02/2024 CBC RDW 12.1 % 11.5-1 4.5 Not Available [facility] - Lab [address] [facility], [place], [address], 04/02/2024 13:21:20 04/02/2004/02/2024 CBC platelet count 309 K/uL 150-40 0 Not Available [facility] - Lab [address] [facility], [place], [address], 04/02/2024 13:21:20 04/02/20 24 04/02/2024 CBC mean platelet volume 8.9 fL 9.4-12 .4 low Not Available [facility] - Lab [address] [facility], [place], [address], 04/02/2024 13:21:20 04/02/20 24 04/02/2024 CBC RDW-SD 42.4 fL 35.1-4 6.3 Not Available [facility] - Lab [address] [facility], [place], [address], 04/02/2024 13:21:20 04/02/20 24 04/02/2024 BASIC METAB OLIC PANEL sodium 139 mmol/ L 135-14 5 Not Available [facility] - Lab [address] [facility], [place], [address], 04/02/2024 13:30:34 04/02/20 24 04/02/2024 BASIC METAB OLIC PANEL potassium 4.7 mmol/ L 3.5-5. 3 Not Available [facility] - Lab [address] [facility], [place], [address], 04/02/2024 13:30:34 04/02/20 24 04/02/2024 BASIC METAB OLIC PANEL chloride 103 mmol/ L 100-11 2 Not Available [facility] - Lab [address] [facility], [place], [address], 04/02/2024 13:30:34 04/02/20 24 04/02/2024 BASIC METAB OLIC PANEL total CO2 26 mmol/ L 21-30 Not Available [facility] - Lab [address] [facility], [place], [address], 04/02/2024 13:30:34 04/02/20 24 04/02/2024 BASIC METAB OLIC PANEL anion gap 10 mmol/ L 4-20 Not Available [facility] - Lab [address] [facility], [place], [address], 04/02/2024 13:30:34 04/02/20 24 04/02/2024 BASIC METAB OLIC PANEL BUN 14 mg/dL 6-20 Not Available [facility] - Lab [address] [facility], [place], [address], 04/02/2024 13:30:34 04/02/20 24 04/02/2024 BASIC METAB OLIC PANEL creatinine 0.80 mg/dL 0.00-1 .30 Not Available [facility] - Lab [address] [facility], [place], [address], 04/02/2024 13:30:34 04/02/20 24 04/02/2024 BASIC METAB OLIC PANEL glucose 102 mg/dL 70-105 Not Available [facility] [address] [facility], [place], [address], 04/02/2024 13:30:34 04/02/20 24 04/02/2024 BASIC METAB OLIC PANEL calcium 10.0 mg/dL 8.4-10 .2 Not Available [facility] [address] [facility], [place], [address], 04/02/2024 13:30:34 04/02/20 24 04/02/2024 BASIC METAB OLIC PANEL estimated GFR (CKD-epi) 80 mL/mi n/bsa >=60 Not Available [facility] [address] [facility], [place], [address], 04/02/2024 13:30:34 04/02/20 24 04/02/2024 MRSA/ SA BY PCR MRSA/SA by PCR Negati ve for Methic illin Resist ant Staphy lococc us aureus . negati ve for methic illin resist ant staphy lococc us aureus . Not Available [facility] [address] [facility], [place], [address], 04/02/2024 16:42:52 04/09/20 24 04/09/2024 SURGI MICHELL PATHO LOGY TISSU E EXAM lab AP case report Surgi michell Patho logy Repor t Case: [id number] CASE REPOR T Surgi michell Patho logy Repor t Case: [id number] Autho stella nelli Provi kay: Hayden naqvi [...] ident ified . Gross only. Not Available [facility] - Lab [address] [facility], [place], [address], 04/12/2024 16:42:28 04/10/20 24 04/10/2024 CBC WBC 11.41 K/uL 4.00-1 1.00 high Not Available [facility] - Lab [address] [facility], [place], [address], 04/10/2024 09:28:00 04/10/20 24 04/10/2024 CBC RBC 3.30 M/uL 3.60-5 .30 low Not Available [facility] - Lab [address] [facility], [place], [address], 04/10/2024 09:28:00 04/10/20 24 04/10/2024 CBC hemoglobin 10.3 g/dL 12.0-1 6.0 low Not Available [facility] - [facility] [address] [facility], [place], [address], 04/10/2024 09:28:00 04/10/20 24 04/10/2024 CBC hematocrit 31.5 % 36.0-4 8.0 low Not Available [facility] [address] [facility], [place], [address], 04/10/2024 09:28:00 04/10/20 24 04/10/2024 CBC MCH 31.2 pg 27.0-3 4.0 Not Available [facility] [address] [facility], [place], [address], 04/10/2024 09:28:00 04/10/20 24 04/10/2024 CBC MCHC 32.7 g/dL 31.0-3 6.0 Not Available [facility] - [facility] [address] [facility], [place], [address], 04/10/2024 09:28:00 04/10/20 24 04/10/2024 CBC MCV 96 fL 80-98 Not Available [facility] [address] [facility], [place], [address], 04/10/2024 09:28:00 04/10/20 24 04/10/2024 CBC RDW 12.2 % 11.5-1 4.5 Not Available [facility] [address] [facility], [place], [address], 04/10/2024 09:28:00 04/10/20 24 04/10/2024 CBC platelet count 208 K/uL 150-40 0 Not Available [facility] - Lab [address] [facility], [place], [address], 04/10/2024 09:28:00 04/10/20 24 04/10/2024 CBC mean platelet volume 9.1 fL 9.4-12 .4 low Not Available [facility] - Lab [address] [facility], [place], [address], 04/10/2024 09:28:00 04/10/20 24 04/10/2024 CBC RDW-SD 42.5 fL 35.1-4 6.3 Not Available [facility] - Lab [address] [facility], [place], [address], 04/10/2024 09:28:00 04/10/20 24 04/10/2024 BASIC METAB OLIC PANEL sodium 139 mmol/ L 135-14 5 Not Available [facility] - [facility] [address] [facility], [place], [address], 04/10/2024 10:18:15 04/10/20 24 04/10/2024 BASIC METAB OLIC PANEL potassium 4.4 mmol/ L 3.5-5. 3 Not Available [facility] - [facility] [address] [facility], [place], [address], 04/10/2024 10:18:15 04/10/20 24 04/10/2024 BASIC METAB OLIC PANEL chloride 105 mmol/ L 100-11 2 Not Available [facility] - [facility] [address] [facility], [place], [address], 04/10/2024 10:18:15 04/10/20 24 04/10/2024 BASIC METAB OLIC PANEL total CO2 28 mmol/ L 21-30 Not Available [facility] [address] [facility], [place], [address], 04/10/2024 10:18:15 04/10/20 24 04/10/2024 BASIC METAB OLIC PANEL anion gap 6 mmol/ L 4-20 Not Available [facility] [address] [facility], [place], [address], 04/10/2024 10:18:15 04/10/20 24 04/10/2024 BASIC METAB OLIC PANEL BUN 17 mg/dL 6-20 Not Available [facility] - Lab [address] [facility], [place], [address], 04/10/2024 10:18:15 04/10/20 24 04/10/2024 BASIC METAB OLIC PANEL creatinine 0.70 mg/dL 0.00-1 .30 Not Available [facility] [address] [facility], [place], [address], 04/10/2024 10:18:15 04/10/20 24 04/10/2024 BASIC METAB OLIC PANEL glucose 132 mg/dL 70-105 high Not Available [facility] Lab [address] [facility], [place], [address], 04/10/2024 10:18:15 04/10/20 24 04/10/2024 BASIC METAB OLIC PANEL calcium 8.7 mg/dL 8.4-10 .2 Not Available [facility] [address] [facility], [place], [address], 04/10/2024 10:18:15 04/10/20 24 04/10/2024 BASIC METAB OLIC PANEL estimated GFR (CKD-epi) 94 mL/mi n/bsa >=60 Not Available [facility] - Lab [address] [facility], [place], [address], 04/10/2024 10:18:15 04/10/20 24 04/10/2024 MAGNE SIUM magnesium 2.0 mg/dL 1.6-2. 6 Not Available [facility] [address] [facility], [place], [address], 04/10/2024 10:18:25 12/27/19 22 12/26/2021 XR, knee http:/ [email or web address]/I ntegra tionPr ocesso r.aspx ?CMD=O PENSTU DY&ACC ESSION =[id number] [email or web address] [address], [address], 12/26/2021 14:45:18 04/08/20 22 04/08/2022 XR, knee http:/ [email or web address] [email or web address]/I ntegra tionPr ocesso r.aspx ?CMD=O PENSTU DY&ACC ESSION =[id number] [id number] [email or web address], [address], 04/08/2022 15:56:12 08/07/20 22 08/07/2022 leg2+ joint s surve y 3FT Fin al Report EXAM#: [id number] PROCED URE: RADHA 0122 XR LEG2+ [...] M.D. On: Aug 07 2022 1:46P [email or web address] [facility] [address] [facility], [place], [address], 08/08/2022 08:50:48 01/29/20 24 01/13/2024 MRI, hip, w/o contr ast No observ ation record ed. [email or web address] Not Available 01/28 11:37:15 Result Notes None recorded. Procedures Surgical History Date Name Laterality Status Provider Name and Address Organization Details Recorded Time 04/09/20 24 Orthopaedic Surgery completed Alexandre Hernandez [facility] 04/28/2024 13:21:25 09/13/19 23 Total knee arthroplasty completed Pita Marvin [facility] 09/20/2022 12:21:14 11/24/19 22 Total knee arthroplasty completed Pita Shavonne [facility] 12/18/2021 16:02:20 08/25/19 14 [facility] 08/27/2021 11:29:50 Imaging Results None recorded. Procedure Notes None recorded. Medical Equipment None [...] Updated DateTime 10/16/2022 167.64 cm 30.7 kg/m2 25518.55 g AISLINN RIVERA [address] [place] [address] [facility] 10/16/2022 13:59:38 Date Recorded Body height Body mass index (BMI) Body weight Provider Name and Address Organization Details Last Updated DateTime 12/26/2021 167.64 cm 30.7 kg/m2 21349.55 g AISLINN RIVERA [address] [place] [address] [facility] 12/26/2021 13:20:19 Date Recorded Body height Body mass index (BMI) Body weight Provider Name and Address Organization Details Last Updated DateTime 01/29/2024 167.64 cm 29.4 kg/m2 33118.81 g Fouzia Antonio [facility] 01/29/2024 11:42:27 Date Recorded Body height Provider Name an Address Organization Details Last Updated DateTime 04/08/2022 167.64 cm Tuyet Li [facility] 04/08/2022 12:52:31 Date Recorded Body height Body mass index (BMI) Body weight Provider Name and Address Organization Details Last Updated DateTime 05/26/2024 167.64 cm 29.9 kg/m2 60265.59 g AISLINN RIVERA [address] [place] [address] [id number] [place] [address] [facility] 05/26/2024 15:16:02 Social History Question Answer Notes LastModified by Organizat ion Details LastModified Time Tobacco Smoking Status Former Smoker Pita little [facility] 08/27/2021 11:29:47 What Is Your Level Of Caffeine Consumption? Moderate Information not available 08/27/2021 Have You Had Cortisone? Yes Information not available 08/27/2021 How Much Tobacco Do You Smoke? No Information not available 08/27/2021 What Types Of Sporting Activities Do You Participate In? None Information not available 08/27/2021 How Many Years Have You Smoked Tobacco? 25 Information not available 08/27/2021 Sex: Unknown Functional Status Question Answer Note LastModified by Organizat ion Details LastModified Time What is your level of alcohol consumption? Moderate Information not available 08/27/2021 Do you or have you ever used smokeless tobacco? Never used smokeless tobacco Information not available 08/27/2021 Are you currently employed? 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 Never used electronic cigarettes Information not available 08/27/2021 What is your exercise level? Occasional Information not available 08/27/2021 Mental Status None recorded. Family History Relationship Description Onset Age of this Age Resolved Age Notes LastModified by Organization Details LastModified Time Father Pulmonary embolism Not available 10/2021 11:29:42 Mother Deep venous thrombosis Not available 10/2021 11:29:42 Mother Phlebitis Not avail able 08/27/2021 11:29:42 Medical History [...] Asthma / Shortness of Breath / Sleep Breakfast Supervisor ea (please specify) N Pulmonary Embolism Y Gynecological HistoryNo gynecological history recorded. Obstetrics History GPAL:G 0 P 0 0 0 0 Immunizations Vaccine Type Date Status Note Provider Nam e and Address Organization Details Recorded Time COVID-19, mRNA, LNP-S, PF, 30 mcg/0.3 mL dose 1 completed Pita little [facility] 08/27/2021 11:38:23 COVID-19, mRNA, LNP-S, PF, 30 mcg/0.3 mL dose 1 completed Pita little [facility] 08/27/2021 11:38:30 COVID-19, mRNA, LNP-S, PF, 30 mcg/0.3 mL dose 1 completed Pita little [facility] 08/27/2021 11:38:40 Influenza, split virus, quadrivalent, preservative 1 completed Pita little [facility] 08/27/2021 11:38:53 Past Encounters Encounter ID Performer Location Encounter Start Date Encounter Closed Date Diagnosis/Indication Diagnosis SNOMED-CT Code Diagnosis ICD10 Code Diagnosis Note [id number] СЕРГЕЙ GALVAN MD [facility] Office [address] [place] [address] [id number] 08/27/2021 10:19:04 08/27/2021 12:17:26 Bilateral osteoarthritis of knees 5396748654 00314 M17.0 [id number] AISLINN RIVERA [facility] [address] [place] [address] [id number] 1 12/26/2021 12:38:05 12/26/2021 14:02:00 Osteoarthritis of right knee joint 1142735410 25313 M17.11 The patient is doing very well [...] any new developmen ts, questions or concerns. [id number] СЕРГЕЙ GALVAN MD [facility] [address] [place] [address] [id number] 1 04/08/2022 12:32:53 04/08/2022 16:55:27 Bilateral osteoarthritis of knees 4089253676 54260 M17.0 [id number] AISLINN RIVERA [facility] [address] [place] [address] [id number] 1 10/16/2022 13:14:33 10/16/2022 14:35:15 Osteoarthritis of left knee joint [id number] 08833 M17.12 The patient is doing well s/p [...] any new developmen ts, questions or concerns. [id number] AISLINN MAHMOOD [facility] [address] [place] [address] [id number] 1 01/29/2024 11:23:45 01/29/2024 15:23:13 Osteoarthritis of left hip joint 9910208236 15847 M16.12 [id number] AISLINN RIVERA [facility] [address] [place] [address] [id number] 1 05/26/2024 14:34:09 05/27/2024 09:16:02 Osteoarthritis of left hip joint [id number] 89503 M16.12 The patient is doing well s/p LON. We discussed reasonable activity at this point in recovery. The patient will complete a course of outpatient PT. She will plan to reach out to us once she feels she is ready to return to work to further discuss a plan in that regard. The patient understand s to wait 90 days from the day of surgery before having dental work and was reminded of antibiotic prophylaxi s prior to dental procedures . The patient knows to follow-up at one year postop and agrees to call the office sooner with any new developmen ts, questions or concerns. Health Concerns Section Related Observation LastModified by Organization Detai ls LastModified Time None Recorded Concern Status LastModified by Organization Details LastModified Time None Recorded Advance Directives Directive None Recorded Payers Insurance Date Sequence Insurance Name Policy Number Policy Hawthorne Covered Member ID Hawthorne Member ID Guarantor Name 06/10/2024 1 [place] [id number] Sarmad Rgrion [id number] Twyla Geoffrion 03/10/2024 1 [place] Twyla Geoffrion [id number] Twyla Geoffrion 03/09/2024 1 [place] [id number] Sarmad Geoffrion [id number] Twyla Geoffrion 05/04/2024 2 [place] [id number] Twyla Geoffrion [id number] Twyla Geoffrion Notes Date Note Type Note Provider Name and Address Organization Details Recorded Time 12/26/2021 text/html Pt is 4 weeks s/ p right TKA presenting today without complaints. The patient is ambulating without the use of an assistive device. Reports improvement in pain over the last 4 weeks and has weaned from narcotics. Satisfied with progress with physical therapy. Sleep has improved. AISLINN RIVERA [address] [place] [address], [phone], [facility] 12/26/2021 13:58:31 10/16/2022 text/html Pt is 4 weeks s/ p left TKA presenting today for routine follow-up. The [...] difficulty with pain at night. AISLINN RIVERA [address] [place] [address], [phone], [facility] 10/16/2022 14:28:44 01/29/2024 text/html Twyla presents today [...] presents today for further evaluation. AISLINN MAHMOOD [address] [place] [address], [phone], [facility] 03/05/2024 17:24:52 05/26/2024 text/html Pt is 6 weeks s/ p left LON presenting today for routine follow-up. The patient is ambulating without the use of an assistive device. Reports improvement in pain over the last 6 weeks. She reports worsening of her restless leg syndrome since surgery which is affecting her sleep. AISLINN RIVERA [address] [place] [address], [phone], [facility] 05/26/2024 15:54:27 OBGyn Episode No OBEpisode recorded.
== END 2025-01-25 11:09 | disposition home or self-care (01) ==
LOC: HO.HVS 10:24
PROVIDERS: PCP Nurse Practitioner; Visit Provider Surgery Vascular Surgery
DX: I71.9 Aortic aneurysm of unspecified site, without rupture (principal); I26.99 Other pulmonary embolism without acute cor pulmonale; E78.00 Pure hypercholesterolemia, unspecified
CPT/HCPCS: 99204

== ENCOUNTER 2025-03-17 08:05 | Outpatient (REF) | payer BC, SELFPAY ==
--- NOTE | ~2025-03-17 | MM_ITS ---
EXAMINATION: DXA BONE DENSITY AXIAL HISTORY: asymptomatic menopausal state TECHNIQUE: [employer] Dual energy absorptiometry (DEXA) of the lumbar spine, total right hip, and femoral neck was performed. COMPARISON: There are no prior studies for comparison. FINDINGS: The bone mineral density of the lumbar spine is 1.236 g/cm2, corresponding to a T-score of 0.3, and a Z-score of 1.5. This is indicative of normal bone mineral density. The bone mineral density of the right total hip is 0.972 g/cm2, corresponding to a T-score of -0.3, and a Z-score of 0.8. This is indicative of normal bone mineral density. The bone mineral density of the right femoral neck is 0.927 g/cm2, corresponding to a T-score of -0.8, and a Z-score of 0.6. This is indicative of normal bone mineral density. MM/XR DEXA axial skeleton IMPRESSION: Based on bone mineral density, and according to World Health Organization (WHO) criteria, the diagnosis is consistent with osteopenia. Statistically, 68% of repeat scans fall within 1 SD (+/- 0.010 g/cm2 for AP spine L1-L4) and 1 SD (+/- 0.012 g/cm2 for femur total) FRAX is a trademark of the [employer] [place] [employer] Metabolic [employer], a World Health Organization (WHO) Collaborating Center. Electronically signed by: Art Jackson MD 03/17/2025 08:37 AM EDT
--- OUTSIDE RECORDS SUMMARY | 2025-03-17 08:08 | XMS_ITS | Data Portability ---
Author Organization [facility], , [facility], OFFICE Address [address] [place] [address] Care Team Providers Care Supervisor Of Communications Name Role Phone ROBIN AKERS Tool [employer] Repairer HEMANTH PAULINO Sandblast Operator СЕРГЕЙ GALVAN OTHER [phone] YUE LANIER Primary Care Provider [phone] Assessment Encounter Date Assessment Date Assessment LastModified by Organization Details LastModified Time 10/28/2024 10/28/2024 -Reschedule bone density scan that was previously cancelled. -Continue with current weight loss medication regimen. [email or web address] Not available 10/28/2024 22:21:51 Plan of Treatment Reminders Order Date Submit Date Provider Last Modified By Organization Details Last Modified Time Details Appointments Welln ess Visit 30 2025 01:30P M Yue Lanier NP Not available Not available Not available NOAC Phone Call 2025 08:40A M TREATMENT NURSE [facility] Not available Not available Not available Lab O&P (ova & francis ites) , stool [address] [facility], [address] [place] [address], [id number], 01/12/2025 13:23:45 cultu re, stool [address] [facility], [address] [place] [address], [id number], 01/12/2025 13:23:46 C-sanchez ctive prote in, quant itati ve, serum or plasm a [address] [facility], [address] [place] [address], [id number], 12/31/2024 15:00:28 magne sium, blood [address] [facility], [address] [place] [address], [id number], 12/31/2024 15:00:[address] [facility], [address] [place] [address], [id number], 12/31/2024 10:41:51 vitam in B12, serum [address] [facility], [address] [place] [address], [address], 01/06/2025 13:51:11 iron + total iron- miranda ng capac ity (TIBC ), serum [address] [facility], [address] [place] [address], [id number], 12/31/2024 15:00:26 TSH, serum or plasm a [address] [facility], [address] [place] [address], [address], 12/31/2024 16:45:40 HbA1c (hemo globi n A1c), blood [address] [facility], [address] [place] [address], [address], 12/31/2024 12:42:10 CMP, serum or plasm a [address] [facility], [address] [place] [address], [address], 12/31/2024 15:00:25 bupre norph ine + norbu preno rphin e, urine - Date and Time of Last Dose: 8pm 4/13, subox . temp [address] [facility], [address] [place] [address], [id number], 12/08/2024 16:12:25 drug scree n, urine - Date and Time of Last Dose: 2024 [facility], [address] [place] [address], [id number], 12/07/2024 12:16:13 homoc ystei ne, QN, serum or plasm a 2024 [facility], [address] [place] [address], [address], 01/03/2025 17:03:30 Referral None recor ded. Procedures None recor ded. Surgeries None recor ded. Imaging CT, abdom en + pelvi s, w/ contr ast - Sever e GI sx. [facility]24 [facility] [address] [place], [address], 03/08/2025 09:07:57 bone densi ty 2024 [facility], [address] [place] [address] [place], [address], 03/01/2025 11:23:02 US, jason t, unila teral , limit ed - By signi ng this order , I appro ve and autho rize the refle x order ing of addit ional jason t imagi ng based on the radio logis t's clini michell judgm ent. <0.5C M TENDE R LUMP ON L AEROL A; 2 O'ENMANUEL CK 2024 [facility], [address] [place] [address] [place], [address], 12/17/2024 10:38:57 DEXA - Will be pt's secon d - first was at [facility] >20 yrs ago. 2024 025 [facility], [address] [place], [address], 02/08/2025 16:30:59 Medication Orders Lomot il 2.5 mg-0. 025 mg table t 2024 025 [facility], [address] [place], [address], 01/12/2025 05:01:55 amoxi cilli n 875 mg-po tassi um clavu lanat e 125 mg table t 2024 025 [facility] [address] [place], [address], 01/20/2025 05:01:41 cyano cobal polk (vit B-12) 1,000 mcg/m L injec tion solut ion 2024 025 [facility] [address], [address] [place], [address], 12/08/2024 18:13:22 cyclo benza patty 5 mg table t 2024 025 [facility] [address], [address] [place], [address], 11/08/2024 17:31:18 Patient Targets Encounter Date Encounter Id Patient Goals Patient Target Last Modified By Organization Details Last Modified Time 12/06/2024 [id number] Cont wt loss journey Not available 12/08/2024 18:45:47 Patient Instructions Encounter Date Encounter Id Patient Instructions Last Modified By Organization Details Last Modified Time 12/06/2024 [id number] Breast self-exam , or regularly examining your breasts on your own, can be an important way to find a breast cancer early, when it s more likely to be treated successfully. While no single test can detect all breast cancers early, [email or web address] believes that performing breast self-exam in combination with other screening methods can increase the odds of early detection. Breast self-exam is a convenient, no-cost tool that you can use on a regular basis and at any age. We recommend that all women routinely perform breast self-exams as part of their overall breast cancer screening strategy. How to do a breast self-exam: The five steps Step 1 Begin by looking at your breasts in the mirror with your shoulders straight and your arms on your hips. Here's what you should look for: Breasts that are their usual size, shape, and color Breasts that are evenly shaped without visible distortion or swelling If you see any of the following changes, bring them to your doctor's attention: Dimpling, puckering, or bulging of the skin A nipple that has changed position or an inverted nipple (pushed inward instead of sticking out) Redness, soreness, rash, or swelling Step 2 Now, raise your arms and look for the same changes. Step 3 While you're at the mirror, look for any signs of fluid coming out of one or both nipples (this could be a watery, milky, or yellow fluid or blood). Step 4 Next, feel your breasts while lying down, using your right hand to feel your left breast and then your left hand to feel your right breast. Use a firm, smooth touch with the first few finger pads of your hand, keeping the fingers flat and together. Use a circular motion, about the size of a quarter. Cover the entire breast from top to bottom, side to side from your collarbone to the top of your abdomen, and from your armpit to your cleavage. Follow a pattern to be sure that you cover the whole breast. You can begin at the nipple, moving in larger and larger circles until you reach the outer edge of the breast. You can also move your fingers up and down vertically, in rows, as if you were mowing a lawn. This up-and-down approach seems to work best for most women. Be sure to feel all the tissue from the front to the back of your breasts: for the skin and tissue just beneath, use light pressure; use medium pressure for tissue in the middle of your breasts; use firm pressure for the deep tissue in the back. When you've reached the deep tissue, you should be able to feel down to your ribcage. Step 5 Finally, feel your breasts while you are standing or sitting. Many women find that the easiest way to feel their breasts is when their skin is wet and slippery, so they like to do this step in the shower. Cover your entire breast, using the same hand movements described in step 4. [email or web address] Not available 12/08/2024 18:45:35 Reason for Referral None Reported. Results Created Date Observation Date Name Description Value Unit Range Abnormal Flag Note LastModifiedBy Organization Detail LastModifiedTime 12/07/1912/07/2024 DRUG SCREE N-8, URINE , WITH CONFI RMATI ON GC/MS amphetamine NEG. negati ve Not Available [address], [address], 12/07/2024 12:16:13 12/07/1912/07/2024 DRUG SCREE N-8, URINE , WITH CONFI RMATI ON GC/MS barbiturates NEG. negati ve Not Available [address], [address], 12/07/2024 12:16:13 12/07/19 25 12/07/2024 DRUG SCREE N-8, URINE , WITH CONFI RMATI ON GC/MS benzodiazepi ne NEG. negati ve Not Available [address], [address], 12/07/2024 12:16:13 12/07/19 25 12/07/2024 DRUG SCREE N-8, URINE , WITH CONFI RMATI ON GC/MS cocaine NEG. negati ve Not Available [address], [address], 12/07/2024 12:16:13 12/07/19 25 12/07/2024 DRUG SCREE N-8, URINE , WITH CONFI RMATI ON GC/MS opiates NEG. negati ve Not Available [address], [address], 12/07/2024 12:16:13 12/07/19 25 12/07/2024 DRUG SCREE N-8, URINE , WITH CONFI RMATI ON GC/MS methadone NEG. negati ve Not Available [address], [address], 12/07/2024 12:16:13 12/07/1912/07/2024 DRUG SCREE N-8, URINE , WITH CONFI RMATI ON GC/MS fentanyl NEG. negati ve Syva EMIT II Limit s of Detec tion (cutt -off value s) [place] Expan d: Amphe tamin es: 1000 ng/ml Opiat es: 300 ng/ml Hailey tuate s: 200 ng/ml Oxyco done 100 ng/ml Benzo diaze pines : 200 ng/ml Metha done 300 ng/ml Cocai ne: 300 ng/ml Fenta nyl 1 ng/ml Not Available [address], [address], 12/07/2024 12:16:13 12/07/1912/07/2024 DRUG SCREE N-8, URINE , WITH CONFI RMATI ON GC/MS oxycodone NEG. negati ve Not Available [address], [address], 12/07/2024 12:16:13 12/07/19 25 12/08/2024 DRUG MONIT OR, BUP AND NALOX ONE,Q N,URI NE buprenorphin e 44 NG/mL <2 high Not Available [facility] [address], [address], 12/08/2024 16:12:25 12/07/19 25 12/08/2024 DRUG MONIT OR, BUP AND NALOX ONE,Q N,URI NE norbuprenorp angela 270 NG/mL <2 high Not Available [facility] [address], [address], 12/08/2024 16:12:25 12/07/19 25 12/08/2024 DRUG MONIT OR, BUP AND NALOX ONE,Q N,URI NE naloxone 91 NG/mL <2 high Not Available [facility] [place] [facility] [address], [place], [address], 12/08/2024 16:12:25 12/07/19 25 12/08/2024 DRUG MONIT OR, BUP AND NALOX ONE,Q N,URI NE buprenorphin e comments See Bupre norph ine Notes , LDT Notes Not Available [facility] [place] [facility] [address], [place], [address], 12/08/2024 16:12:25 12/07/1912/08/2024 DRUG MONIT ORING TEMPL ATE notes and comments This drug testi ng is for medic al treat ment only. Mayank sis was perfo rmed as non-f orens ic testi ng and these resul ts shoul d be used only by healt letty becerril to rende r diagn osis or treat ment, or to monit or progr ess of medic al condi tions . Bupre norph ine Notes : Bupre norph ine, Norbu preno rphin e detec guzman is consi stent with the use of the drug( s) Bupre norph ine or Bupre norph ine with Nalox one. Nalox one may be negat konrad due to poor oral bioav ailab ility and/o r short half- life. Bupre norph ine, Norbu preno rphin e, Nalox one detec guzman is consi stent with the use of the drug Bupre norph ine and Nalox one. LDT Notes : Confi rmati on tests were devel oped and their mayank tical perfo rmanc e kajal cteri stics have been deter mined by [facility]. It has not been clear ed or appro reggie by the FDA. This assay has been valid ated pursu ant to the CLIA regul ation s and is used for clini michell purpo ses. Healt letty Provi ders needi ng Inter preta tion jenna tance , pleas e conta ct us at 1.877 .40.R XTOX (1.87 7.407 .9869 ) M-F, 8am to 10pm EST Not Available [facility] [address], [place], [address], 12/08/2024 16:12:26 12/31/19 25 12/31/2024 CBC WBC 6.98 K/ L 3.98-1 0.04 Not Available [address], [address], 12/31/2024 10:41:51 12/31/1912/31/2024 CBC RBC 4.56 M/ L 3.93-5 .22 Not Available [address], [address], 12/31/2024 10:41:51 12/31/1912/31/2024 CBC HGB 14.4 g/dL 11.2-1 5.7 Not Available [address], [address], 12/31/2024 10:41:51 12/31/1912/31/2024 CBC HCT 45.1 % 34.1-4 4.9 high Not Available [address], [address], 12/31/2024 10:41:51 12/31/1912/31/2024 CBC MCV 98.9 fL 79.4-9 4.8 high Not Available [address], [address], 12/31/2024 10:41:51 12/31/1912/31/2024 CBC MCH 31.6 pg 25.6-3 2.2 Not Available [address], [address], 12/31/2024 10:41:51 12/31/19 25 12/31/2024 CBC MCHC 31.9 g/dL 32.2-3 5.5 low Not Available [address], [address], 12/31/2024 10:41:51 12/31/1912/31/2024 CBC plt 294 K/ L 182-36 9 Not Available [address], [address], 12/31/2024 10:41:51 12/31/1912/31/2024 CBC MPV 9.7 fL 9.4-12 .3 Not Available [address], [address], 12/31/2024 10:41:51 12/31/1912/31/2024 CBC neut% 58.8 % 34.0-7 1.1 Not Available [address], [address], 12/31/2024 10:41:51 12/31/1912/31/2024 CBC neut# 4.10 1.56-6 .13 Not Available [address], [address], 12/31/2024 10:41:51 12/31/1912/31/2024 CBC lymph % 30.5 % 19.3-5 1.7 Not Available [address], [address], 12/31/2024 10:41:51 12/31/1912/31/2024 CBC lymph # 2.13 K/ L 1.18-3 .74 Not Available [address], [address], 12/31/2024 10:41:51 12/31/1912/31/2024 CBC mono% 7.0 % 4.7-12 .5 Not Available [address], [address], 12/31/2024 10:41:51 12/31/1912/31/2024 CBC mono# 0.49 0.24-0 .56 Not Available [address], [address], 12/31/2024 10:41:51 12/31/1912/31/2024 CBC eo% 3.0 % 0.7-5. 8 Not Available [address], [address], 12/31/2024 10:41:51 12/31/1912/31/2024 CBC eo# 0.21 0.04-0 .36 Not Available [address], [address], 12/31/2024 10:41:51 12/31/1912/31/2024 CBC baso% 0.6 % 0.1-1. 2 Not Available [address], [address], 12/31/2024 10:41:51 12/31/1912/31/2024 CBC baso# 0.04 0.00-0 .08 Not Available [address], [address], 12/31/2024 10:41:51 12/31/1912/31/2024 CBC RDW-CV 12.8 % 11.7-1 4.4 Not Available [address], [address], 12/31/2024 10:41:51 12/31/1912/31/2024 CBC Ig% 0.100 % 0.000- 1.500 Ig % >0.5 Indic ates possi ble Left Shift Not Available [address], [address], 12/31/2024 10:41:51 12/31/1912/31/2024 CBC Ig# 0.010 0.000- 0.093 Not Available [address], [address], 12/31/2024 10:41:51 12/31/1912/31/2024 CBC NRBC% 0.0 % 0.0-0. 2 Not Available [address], [address], 12/31/2024 10:41:51 12/31/1912/31/2024 CBC NRBC# 0.000 0.000- 0.012 Not Available [address], [address], 12/31/2024 10:41:51 12/31/1912/31/2024 HGB A1C hemoglobin A1C 5.7 % 4.8-6. 0 Goal: <7% in Patie nts with Diabe erick An A1c betwe en 5.7-6 .4% is ident ified as pre-d iabet es and sugge sts risk for progr essio n to diabe erick Two a1c value s of 6.5% or highe r is consi stent with a diagn osis of diabe erick but may need furth er confi rmati on Not Available [address], [address], 12/31/2024 12:42:10 12/31/1912/31/2024 HGB A1C estimated average glucose 116.9 mg/dL Not Available [address], [address], 12/31/2024 12:42:10 12/31/1912/31/2024 COMP. METAB OLIC PANEL glucose 99 mg/dL 70-100 Not Available [address], [address], 12/31/2024 15:00:25 12/31/1912/31/2024 COMP. METAB OLIC PANEL BUN 10 mg/dL 7-18 Not Available [address], [address], 12/31/2024 15:00:25 12/31/19 25 12/31/2024 COMP. METAB OLIC PANEL creatinine 0.8 mg/dL 0.8-1. 3 Not Available [address], [address], 12/31/2024 15:00:25 12/31/1912/31/2024 COMP. METAB OLIC PANEL B/C 12.5 ratio Not Available [address], [address], 12/31/2024 15:00:25 12/31/1912/31/2024 COMP. METAB OLIC PANEL GFR >=60ML /MIN mL/mi n normal >=60m L/min - Jazmine l or midly reduc ed <60mL /min- Decre ased kidne y funct ion <15mL /min - Kidne y failu re [facility] calcu lates estim ated Glome rular Filtr ation Rate (eGFR ) using the Chron ic Kidne y Disea se Epide miolo gy Colla borat ion (CKD- EPI) Equat ion (Venita r et. al 2020) as recom bryson d by the Natio nal Kidne y Found ation . eGFR is based on age, serum creat inine , and sex. CKD-E PI does not calcu late eGFR by race, does not apply to child mike (age <18 years ), and shoul d not be used in pregn patrice. Not Available [address], [address], 12/31/2024 15:00:25 12/31/1912/31/2024 COMP. METAB OLIC PANEL sodium 143 mmol/ L 136-14 5 Not Available [address], [address], 12/31/2024 15:00:25 12/31/1912/31/2024 COMP. METAB OLIC PANEL potassium 4.6 mmol/ L 3.5-5. 1 Not Available [address], [address], 12/31/2024 15:00:25 12/31/1912/31/2024 COMP. METAB OLIC PANEL chloride 104 mmol/ L 96-107 Not Available [address], [address], 12/31/2024 15:00:25 12/31/1912/31/2024 COMP. METAB OLIC PANEL anion gap 12.7 5.0-15 .0 Not Available [address], [address], 12/31/2024 15:00:25 12/31/1912/31/2024 COMP. METAB OLIC PANEL CO2 26 mmol/ L 21-32 Not Available [address], [address], 12/31/2024 15:00:25 12/31/1912/31/2024 COMP. METAB OLIC PANEL calcium 9.6 mg/dL 8.5-10 .3 Not Available [address], [address], 12/31/2024 15:00:25 12/31/19 25 12/31/2024 COMP. METAB OLIC PANEL total protein 6.6 g/dL 6.4-8. 2 Not Available [address], [address], 12/31/2024 15:00:25 12/31/19 25 12/31/2024 COMP. METAB OLIC PANEL albumin 3.6 g/dL 3.4-5. 0 Not Available [address], [address], 12/31/2024 15:00:25 12/31/1912/31/2024 COMP. METAB OLIC PANEL globulin 3.0 g/dL Not Available [address], [address], 12/31/2024 15:00:25 12/31/19 25 12/31/2024 COMP. METAB OLIC PANEL A/G 1.2 ratio 0.8-2. 0 Not Available [address], [address], 12/31/2024 15:00:25 12/31/1912/31/2024 COMP. METAB OLIC PANEL total bilirubin 0.80 mg/dL 0.00-1 .00 Not Available [address], [address], 12/31/2024 15:00:25 12/31/1912/31/2024 COMP. METAB OLIC PANEL AST 11 U/L 0-37 Not Available [address], [address], 12/31/2024 15:00:25 12/31/1912/31/2024 COMP. METAB OLIC PANEL ALT 22 U/L 6-63 Not Available [address], [address], 12/31/2024 15:00:25 12/31/19 25 12/31/2024 COMP. METAB OLIC PANEL alk. phos. 72 U/L 50-136 Not Available [address], [address], 12/31/2024 15:00:25 12/31/1912/31/2024 IRON PANEL iron 134 ug/dL 35-150 Not Available [address], [address], 12/31/2024 15:00:26 12/31/1912/31/2024 IRON PANEL T.I.B.C. 312 ug/dL 250-45 0 Not Available [address], [address], 12/31/2024 15:00:26 12/31/1912/31/2024 IRON PANEL % saturation 42.9 % Not Available [address], [address], 12/31/2024 15:00:26 12/31/1912/31/2024 MAGNE SIUM magnesium 1.9 mg/dL 1.8-2. 4 Not Available [address], [address], 12/31/2024 15:00:27 12/31/19 25 12/31/2024 C-SANCHEZ CTIVE PROTE IN (RCRP ) C-reactive protein (rcrp) 2.0 mg/L 0.5-9. 0 Not Available [address], [address], 12/31/2024 15:00:28 12/31/19 25 12/31/2024 TSH TSH <0.01 uIU/m L 0.50-6 .00 low < The Ameri can Colle ge of Endoc rinol ogy and Ameri can Thyro id Assoc iatio n recom mend goal TSH value s betwe en 0.4-4 .0 mIU/m L. Not Available [address], [address], 12/31/2024 16:45:40 12/31/19 25 01/03/2025 HOMOC YSTEI NE homocysteine 10.5 umol/ L <10.4 high Homoc ystei ne is incre ased by funct ional defic iency of folat e or vitam in B12. Testi ng for methy lmalo zoila acid diffe renti ates betwe en these defic ienci es. Other cause s of incre ased homoc ystei ne inclu de renal failu re, folat e antag onist s such as metho trexa te and pheny toin, and expos ure to nitro us oxide . Haider Delgadillo, et al., [facility] Inter n Med. 1999; 131(5 ):331 -9. Not Available [facility] [address] [place] [address] [place], [address], 01/03/2025 17:03:30 12/31/19 25 01/06/2025 VITAM IN B12 vitamin B12 366 pg/mL 230-10 50 Not Available [address], [address], 01/06/2025 13:51:10 01/01/20 25 01/12/2025 OVA AND FRANCIS ITES, CONC AND PERM SMEAR ova and parasites, conc and perm smear OVA AND FRANCIS ITES, CONC AND PERM SMEAR Micro Numbe r: [id number] Test Statu s: Final Speci men Sourc e: Stool Speci men Quali ty: Adequ ate NICK NTRAT ION 1: No ova or francis ites seen TRICH JOSE 1: No ova or francis ites seen Routi ne Ova and Francis ite exam may not detec t some francis ites that occas ional ly cause diarr heal illne ss. Crypt ospor idium Antig en and/o r Cyclo spora and Isosp ora Exam may be order ed to detec t these francis ites. One negat konrad sampl e does not neces saril y rule out the prese nce of a francis itic infec tion. For addit ional infor garret back refer to https ://ed ati on.qu [employer]/f aq/FA Q203 (This link is being provi ded for infor jose katz/ ramiro spence purpo ses only. ) Not Available [facility] [place] [facility] [address], [place], [address], 01/12/2025 13:23:45 01/01/20 25 01/12/2025 SALMO JOMAR /SHIG BURT CULT, CAMPY EIA AND SHIGA TOXIN W/RFL E. COLI O157 CULT campylobacte r spp. Ag,EIA CAMPY LOBAC TER SPP. AG,EI A Micro Numbe r: [id number] Test Statu s: Final Speci men Sourc e: Stool Speci men Quali ty: Adequ ate Campy Ag Resul t: Not Detec guzman Refer ence Range : Not Detec guzman Not Available [facility] [place] [facility] [address], [place], [address], 01/12/2025 13:23:46 01/01/20 25 01/12/2025 SALMO JOMAR /SHIG BURT CULT, CAMPY EIA AND SHIGA TOXIN W/RFL E. COLI O157 CULT shiga toxins, EIA w/rfl to E.coli O157 culture SHIGA TOXIN S, EIA W/RFL TO E.COL I O157 CULTU RE Micro Numbe r: [id number] Test Statu s: Final Speci men Sourc e: Stool Speci men Quali ty: Adequ ate Shiga Toxin : Not Detec guzman Refer ence Range : Not Detec guzman Not Available [facility] [address], [address], 01/12/2025 13:23:46 01/01/20 25 01/12/2025 SALMO JOMAR /SHIG BURT CULT, CAMPY EIA AND SHIGA TOXIN W/RFL E. COLI O157 CULT salmonella and shigella, culture SALMO JOMAR AND SHIGE LLA, CULTU RE Micro Numbe r: [id number] Test Statu s: Final Speci men Sourc e: Stool Speci men Quali ty: Adequ ate Resul t: No Salmo jomar or Shige lla isola guzman Not Available [facility] [place] [facility] [address], [address], 01/12/2025 13:23:46 12/18/19 25 12/17/2024 US, elbert flowers , limit ed No observ ation record ed. [address] [place], [address], 12/21/2024 11:11:02 12/18/19 25 12/17/2024 , elbert flowers , limit ed No observ ation record ed. [address] [place], [address], 12/21/2024 11:11:02 12/18/19 25 12/17/2024 MAMMO , diagn ostic , tomos ynthe sis, bilat eral No observ ation record ed. nviens [facility] (Imaging) [address] [facility], [place], [address], 02/08/2025 16:18:51 01/12/20 25 01/06/2025 CT, abdom en + pelvi s, w/ contr ast CT ABDOME N/PELV IS WITH CONTRA ST Referr ing clinic melissa's provid ed indica tion for this examin ation in Epic: Outsid e Radiol ogy Order; divert iculit is TECHNI QUE: Multid etecto r-row CT of the abdome n and pelvis was perfor med after admini strati on of intrav enous contra st using tailor ed dose modula tion techni ques. Images were recons tructe d in the axial, mistry l, and sagitt al planes . COMPAR JOSE: CT ABDOME N/PELV IS WITH CONTRA ST 2023-O ct-; CT ABDOME N/PELV IS WITH CONTRA ST 2020- ay-; CT ABDOME N/PELV IS WITH CONTRA ST 2018-A ug-15 FINDIN GS: Lower chest: Clear lung bases. No effusi ons. Liver: Diffus tristan decrea sed densit y of the liver is compat ible with steato sis. This lowers the sensit ivity for focal lesion s. No suspic ious focal lesion s. Hepati c hypode nsitie s statis ticall y most likely cysts. Biliar y: No biliar y ductal dilata tion. Spleen : No spleno megaly or focal lesion s. Pancre as: No masses or ductal dilata tion. Adrena l glands : No nodule s. Kidney s/uret ers: No solid masses or hydron ephros is. No stones . Left renal cyst. Bowel: No dilati on or wall thicke andrews. Divert iculos is withou t CT eviden ce of divert iculit is. Normal append ix. Perito neum/r etrope ritone um: No masses , free air, or fluid. Lymph nodes: No lympha denopa thy. Pelvic organs /bladd er: No masses . Vessel s: No abdomi nal aortic aneury sm. Althou gh the study is not well protoc ol for arteri al vascul ar evalua tion, there is a focal irregu larity of the infrar enal abdomi nal aorta series 6 image 57 and series 3 image 33 which raises suspic ion for an penetr ating athero sclero tic ulcer. Maximu m diamet er at as well as 2.4 cm. Bones/ soft tissue s: Visual ized skelet on shows degene rative change s. No eviden ce for any suspic ious lytic or blasti c lesion s. . IMPRES JUSTINO: 1. Focal irregu larity in the aorta suspic ious for penetr ating aortic ulcer. 2. Divert iculos is withou t eviden ce of divert iculit is. 3. Hepati c steato sis. RECOMM ENDATI ON: CONSID ER REFERR AL TO VASCUL AR SURGER Y FOR EVALUA TION OF PENETR ATING AORTIC ULCER Electr onical ly Signed by: Dr. Gentry Alcantara on 025 12:55 PM Interp reted by: Gnetry Alcantara MD, MAHENDRA Signed by: Gentry Alcantara MD, MAHENDRA 5 Final result SEVERE GI sx YUE MAUREE N LANIER YUE MAUREE N LANIER YUE MAUREE N LANIER mmastroberti [facility] [address] [place], [address], 03/08/2025 09:07:57 Result Notes None recorded. Procedures Surgical History Date Name Laterality Status Provider Name and Address Organization Details Recorded Time 5 Sheila - Colonoscopy completed Carlo Sosa MD [address] [place] [address], [id number], [facility] [place] 03/07/2025 10:27:41 Imaging Results None recorded. Procedure Notes None recorded. Medical Equipment None Reported. Allergies No known drug allergies Medications Name Sig Start Date Stop Date Status Note LastModified by Organization Details LastModified Time digestive health probiotic capsules TK 1 C PO D 03/09 completed Not Available Not Available Not Available Prescript ion - Prior Authoriza tion Request 10/13 completed [facility] - Zepbound Not Available Not Available Not Available amoxicill in 500 mg capsule TAKE FOUR CAPSULES BY MOUTH ONCE PRIOR TO INVASIVE DENTAL PROCEDUR E active Not Available Not Available No t Available bupropion HCl SR 150 mg tablet,12 hr sustained -release Take 1 tab every morning and 1 tab every afternoo n 05/03 completed Not Available Not Available Not Available clonidine HCl 0.1 mg tablet 03/31 completed not at this time 03/09/20 19 angelica Not Available Not Available Not Available paroxetin e 10 mg tablet Take 1 tablet every day by oral route. 03/09 completed Not Available Not Available Not Available atorvasta tin 20 mg tablet TAKE 1 TABLET BY MOUTH EVERY DAY 07/11 completed 05/13/22 cb pt states not taking Not Available Not Available Not Available nicotine 14 mg/24 hr daily transderm al patch 03/31 completed Not Available Not Available Not Available trazodone 50 mg tablet TAKE 1 TABLET BY MOUTH ONCE DAILY NEEDED active Not Available Not Available No t Available polyethyl dorothea glycol 3350 17 gram oral powder packet 03/09 completed Not Available Not Available Not Available fluconazo le 150 mg tablet TAKE 1 TABLET BY MOUTH ONCE DAILY FOR 2 DAYS 10/22 completed did not take due to did not get infectio n Not Available Not Available Not Available lisinopri l 20 mg tablet Take 1 tablet by mouth once daily 2024 active Not Available Not Available Not Avai lable prednison e 20 mg tablet Take 2 tablets every day by oral route for 5 days. 12/06 completed Not Available Not Available Not Available clonazepa m 0.5 mg tablet 03/31 completed Not Available Not Available Not Available clonazepa m 1 mg tablet TAKE 1 TABLET BY MOUTH ONE HOUR PRIOR TO PROCEDUR E , MAY REPEAT DOSE 12/30 completed Not Available Not Available Not Available penicilli n V potassium 500 mg tablet 03/09 completed Not Available Not Available Not Available metronida zole 500 mg tablet 03/09 completed Not Available Not Available Not Available ciproflox acin 250 mg tablet Take 1 tablet every 12 hours by oral route for 7 days. 05/05 completed Not Available Not Available Not Available ciproflox acin 500 mg tablet Take 1 tablet every 12 hours by oral route for 7 days. 11/28 completed Not Available Not Available Not Available sulfameth oxazole 800 mg-trimet hoprim 160 mg tablet TAKE 1 TABLET BY MOUTH TWICE DAILY FOR 5 DAYS 12/10 completed Not Available Not Available Not Available tramadol 50 mg tablet TAKE 2 TABLETS BY MOUTH TWICE DAILY NEEDED FOR 4 DAYS 05/13 completed Not Available Not Available Not Available amoxicill in 500 mg tablet Take 4 tablets once prior to invasive dental procedur e 02/04 completed Not Available Not Available Not Available Kenalog 40 mg/mL suspensio n for injection Inject 60mg IM now 12/30 completed one time injectio n Not Available Not Available Not Available oxycodone -acetamin ophen 5 mg-325 mg tablet 03/09 completed Not Available Not Available Not Available modafinil 200 mg tablet active Not Available Not Available Not Available methocarb emily 750 mg tablet TAKE 1 TABLET BY MOUTH EVERY 8 HOURS NEEDED FOR MUSCLE SPASM 03/04 completed Not takng 02/04/23 AAS Not Available Not Available Not Available DOK 100 mg capsule TK ONE C PO BID PRF CONSTIPA TION 03/09 completed Not Available Not Available Not Available phenazopy ridine 100 mg tablet TAKE 1 TABLET BY MOUTH THREE TIMES DAILY NEEDED FOR PAIN 02/26 completed Not Available Not Available Not Available erythromy tomer 5 mg/gram (0.5 %) eye ointment APPLY OINTMENT TO UPPER LIDS OF EACH EYE THREE TIMES DAILY AFTER SURGERY 10/28 completed Not Available Not Available Not Available cyanocoba sandi (vit B-12) 1,000 mcg/mL injection solution INJECT 1 ML (CC) INTRAMUS CULARLY ONCE A WEEK FOR 10 WEEKS active Not Available Not Available No t Available ropinirol e 0.5 mg tablet 03/31 completed 0.3mg Not Available Not Available Not Available nystatin 100,000 unit/gram topical cream APPLY CREAM TOPICALL Y TO AFFECTED AREA(S) TWICE DAILY active Not Available Not Available No t Available dexametha sone 4 mg tablet Take 1 tablet every day by oral route as directed for 5 days. 12/06 completed Not Available Not Available Not Available Gentle Laxative (bisacody l) 5 mg tablet,de layed release 12/06 completed Not Available Not Available Not Available polymyxin B sulfate 10,000 unit-trim ethoprim 1 mg/mL eye drops INSTILL 1 DROP INTO AFFECTED EYE(S) BY OPHTHALM IC ROUTE EVERY 6 HOURS 11/28 completed Not Available Not Available Not Available BD Luer-Alexandria Syringe 3 mL 25 gauge x 1 USE 1 SYRINGE EVERY DAY OR DIRECTED active Not Available Not Available No t Available methimazo le 5 mg tablet 1/2 tab 2.5mg by mouth once daily 02/26 completed 02/27/2024 states not taking Not Available Not Available Not Available omeprazol e 20 mg capsule,d elayed release TAKE 1 CAPSULE BY MOUTH ONCE DAILY active Not Available Not Available No t Available cephalexi n 500 mg tablet 03/09 completed Not Available Not Available Not Available ammonium lactate 12 % topical cream APPLY CREAM TOPICALL Y ONCE DAILY DIRECTED active Not Available Not Available No t Available pravastat in 20 mg tablet 03/09 completed Not Available Not Available Not Available mupirocin 2 % topical ointment 03/09 completed Not Available Not Available Not Available polyethyl dorothea glycol 3350 17 gram/dose oral powder DISSOLVE 17 GRAMS IN CLEAR LIQUID AND DRINK EVERY DAY DIRECTED 11/28 completed Not Available Not Available Not Available albuterol sulfate HFA 90 mcg/actua tion aerosol inhaler Inhale 2 puffs every 4 hours by inhalati on route. 05/13 completed Not Available Not Available Not Available Lomotil 2.5 mg-0.025 mg tablet Take 2 tablets 3 times a day by oral route as needed for 2 days, for diarrhea . 01/12 completed Not Available Not Available Not Available carbidopa 25 mg-levodo pa 100 mg tablet Take 1 tablet every day by oral route at bedtime for 30 days. 06/16 completed Not taking 02/04/23 AAS Not Available Not Available Not Available fluoxetin e 20 mg capsule 03/09 completed Not Available Not Available Not Available doxycycli ne hyclate 100 mg tablet 03/09 completed Not Available Not Available Not Available amoxicill in 875 mg-potass ium clavulana te 125 mg tablet Take 1 tablet every 12 hours by oral route as directed for 10 days, for ?Diverti culitis. 01/20 completed Not Available Not Available Not Available nicotine 7 mg/24 hr daily transderm al patch Apply 1 patch every day by transder mal route. 07/16 completed Not Available Not Available Not Available oxycodone 5 mg tablet TAKE 1 TABLET BY MOUTH EVERY 4 TO 6 HOURS NEEDED FOR POSTOP PAIN , TAKE LOWEST DOSE NECESSAR Y FOR PAIN CONTROL 05/13 completed Not Available Not Available Not Available enoxapari n 40 mg/0.4 mL subcutane ous syringe INJECT 1 SYRINGE (0.4ML ) SUBCUTAN EOUSLY EVERY DAY 05/13 completed Not Available Not Available Not Available bupropion HCl SR 200 mg tablet,12 hr sustained -release TAKE 1 TABLET BY MOUTH EVERY DAY active Not Available Not Available No t Available naloxone 1 mg/mL injection syringe prn by im route 07/14 completed Not Available Not Available Not Available cyclobenz aprine 5 mg tablet TAKE 1 TABLET BY MOUTH TWICE DAILY DIRECTED FOR 14 DAYS, FOR TMJ 11/08 completed Not Available Not Available Not Available Premarin 0.625 mg/gram vaginal cream 1 gram applicat orful intravag inally 2-3x/wee k. active PRN Not Available Not Available No t Available rosuvasta tin 10 mg tablet TAKE 1 TABLET BY MOUTH ONCE DAILY 10/28 completed Not Available Not Available Not Available bupropion HCl XL 300 mg 24 hr tablet, extended release TAKE 1 TABLET BY MOUTH EVERY DAY DIRECTED active Not Available Not Available No t Available bupropion HCl XL 150 mg 24 hr tablet, extended release TK 1 T PO QD 05/31 completed Not Available Not Available Not Available Zomig 5 mg nasal spray USE 1 SPRAY PRN BY NASAL ROUTE AT ONSET OF MIGRAINE 10/22 completed Not Available Not Available Not Available duloxetin e 30 mg capsule,d elayed release TAKE IN ADDITION TO THE 60MG DOSE. CAN TAKE 1 (30MG) CAPSULE BY MOUTH ONCE DAILY IN THE MORNING AND 60MG AT NIGHT 10/28 completed Not Available Not Available Not Available duloxetin e 60 mg capsule,d elayed release TAKE 1 CAPSULE BY MOUTH EVERY DAY IN ADDITION TO 30MG. active Not Available Not Available No t Available peg 3350-elec trolytes 236 gram-22.7 4 gram-6.74 gram-5.86 gram solution 12/06 completed Not Available Not Available Not Available oxycodone 10 mg tablet TAKE 1/2 TO 1 TABLET EVERY 4 HOURS NEEDED FOR ACUTE POST OP PAIN. ALWAYS TAKE THE LEAST AMOUNT OF NARCOTIC S TO CONTROL PAIN. RAPIDLY TAPER PAIN IMPROVES , HOLD FOR SEDATION . 01/08 completed Not taking 01/08/22 AAS Not Available Not Available Not Available buprenorp angela 2 mg-naloxo ne 0.5 mg sublingua l film PLACE 1 STRIP UNDER THE TONGUE ONCE DAILY FOR 4 DAYS active Not Available Not Available No t Available buprenorp angela 8 mg-naloxo ne 2 mg sublingua l film DIS 1/2 FILM UNT SL DAILY FOR 28 DAYS (WITH 1 REFILL) 12/01 completed Not Available Not Available Not Available dabigatra n etexilate 150 mg capsule Take 1 capsule by mouth once daily 2024 active Not Available Not Available Not Avai lable Eclipse Syringe 3 mL 25 gauge x 1 USE ONE EVERY WEEK FOR 10 WEEKS active Not Available Not Available No t Available Eliquis 5 mg tablet TAKE 1 TABLET BY MOUTH TWICE DAILY ON POST OP DAY 6 AND TAKE IT FOR 4 WEEKS. START AFTER COMPLETI NG ELIQUIS 2.5MG POST OP DAYS 1 TO 5 11/28 completed Not Available Not Available Not Available Eliquis 2.5 mg tablet TAKE 1 TABLET BY MOUTH IN THE MORNING AND 1 IN THE EVENING FOR FOUR WEEKS THEN RESUME HOME PRADAXA 05/13 completed Not Available Not Available Not Available glycopyrr onium tosylate 2.4 % towelette APPLY 1 TOWELETT E BY TOPICAL ROUTE ONCE DAILY DIVIDED EVENLY to scalp, neck and face 09/15 completed Adverse effect - started losing hair. Not Available Not Available Not Available tramadol 100 mg tablet Take 1 tablet twice a day by oral route as needed for 14 days. 02/26 completed 02/27/2024 not using Not Available Not Available Not Available COVID-19 test specimen collectio n TEST DIRECTED TODAY 01/08 completed Not Available Not Available Not Available BinaxNOW COVID-19 Ag Self Test kit Use as Directed on the Package 07/11 completed Not Available Not Available Not Available Wegovy 1.7 mg/0.75 mL subcutane ous pen injector Inject 1.7 mg every week by subcutan eous route as directed for 30 days. 07/06 completed Not Available Not Available Not Available Wegovy 1 mg/0.5 mL subcutane ous pen injector Inject 1 mg every week by subcutan eous route for 28 days. 07/06 completed Not Available Not Available Not Available Wegovy 0.25 mg/0.5 mL subcutane ous pen injector Inject 1 mL every week by subcutan eous route as directed for 30 days. 02/26 completed 02/27/2024 using 0.5 Not Available Not Available Not Available Wegovy 0.5 mg/0.5 mL subcutane ous pen injector ADMINIST ER 0.5 MG UNDER THE SKIN 1 TIME EVERY WEEK DIRECTED 07/06 completed Not Available Not Available Not Available Mounjaro 2.5 mg/0.5 mL subcutane ous pen injector Inject 2.5 mg every week by subcutan eous route as directed for 28 days. 07/06 completed Not Available Not Available Not Available semagluti de 0.25 mg or 0.5 mg (2 mg/3 mL) subcutane ous pen injector Inject 0.5 mg every week by subcutan eous route. active By Pikimal. compound ing Not Available Not Available Not Available Zepbound 5 mg/0.5 mL subcutane ous pen injector Inject 5 mg every week by subcutan eous route as directed for 60 days. 12/10 completed Not Available Not Available Not Available Zepbound 2.5 mg/0.5 mL subcutane ous pen injector 12/10 completed Not Available Not Available Not Available Vitals None Recorded Social History Question Answer Notes LastModified by Organizat ion Details LastModified Time What Is Your Level Of Caffeine Consumption? Heavy 3 Cups Per Day [email or web address] Information not available 12/20/2020 What Type Of Diet Are You Following? REGULAR Information not available 03/09/2019 Which Illicit Or Recreational Drugs Have You Used? None Information not available 11/28/2022 Education 2 Year College [email or web address] Information not available 09/02/2022 Have There Been Any Changes To Your Family Or Social Situation? No Information not available 11/28/2022 When Did You Quit Smoking? 1-5yearssin celastciingrid ette Information not available 12/06/2024 Are There Any Guns Present In Your Home? No Information not available 03/09/2019 Live Alone Or With Others? With Others - Sarmad, Adult Son [email or web address] Information not available 09/02/2022 Marital Status [email or web address] Informatio n not available 09/02/2022 Mosquito Repellent Used Routinely No [email or web address] Information not available 09/02/2022 What Was The Date Of Your Most Recent Tobacco Screening? 12/06/2024 Information not available 12/06/2024 How Many Children Do You Have? 2 Information not available 03/09/2019 What Is Your Current Pack Years? 30ormorepac kyears Information not available 06/16/2023 What Is Your Relationship Status? 38 Years 2022. Information not available 11/28/2022 Do You Use Your Seat Belt Or Car Seat Routinely? Yes Information not available 11/28/2022 Seat Belts Used Routinely Yes [email or web address] Information not available 09/02/2022 Smoke Alarm In Home Yes [email or web address] Information not available 09/02/2022 Do You Have Smoke And Carbon Monoxide Detectors In Your Home? Yes Information not available 11/28/2022 Are You Passively Exposed To Smoke? No Information not available 11/28/2022 How Much Tobacco Do You Smoke? No [email or web address] Information not available 07/11/2022 What Types Of Sporting Activities Do You Participate In? Water [employer]robics Information not available 03/09/2019 General Stress Level Low [email or web address] Information not available 09/02/2022 Do You Use Sunscreen Routinely? Yes Information not available 03/09/2019 How Many Years Have You Smoked Tobacco? 45 [email or web address] Information not available 10/04/2019 Sex: Female Functional Status Question Answer Note LastModified by Organizat ion Details LastModified Time Do you or have you ever used any other forms of tobacco or nicotine? No [email or web address] Information not available 09/16/2022 What is your level of alcohol consumption? Moderate 6x weekly [email or web address] Information not available 09/16/2022 Do you or have you ever used smokeless tobacco? 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 Former user of electronic cigarettes aforesteire Information not available 03/08/2022 Mental Status None recorded. Family History Relationship Description Onset Age of this Age Resolved Age Notes LastModified by Organization Details LastModified Time Brother Hereditary hyperhomocys teinemia brothe rs amanda er had a stroke [email or web address] Not available 10/22/2023 15:57:53 Brother Diabetes mellitus dalpern Not available 2022 20:24:35 Unspecified Relation Cerebrovascu lar accident niece [email or web address] Not available 06/2021 13:13:48 Paternal Grandfather Cerebrovascu lar accident [email or web address] Not available 06/2021 13:13:48 Mother Myocardial infarction [email or web address] Not available 10/05 13:13:58 Mother Stented artery [email or web address] Not available 2022 11:52:10 Father Coronary artery bypass graft [email or web address] Not available 04/2023 11:52:10 Father Diabetes mellitus dalpern Not available 2022 20:24:15 Notes:Son - alcoholism & bip olar - just relapsed. Medical History Condition Response Osteoarthritis Y Diverticulitis Y Hypertension Y Hyperthyroid Y Gynecological History Statement/Question Response Unknown Obstetrics History GPAL:G 0 P 0 0 0 0 Past Encounters Encounter ID Performer Location Encounter Start Date Encounter Closed Date Diagnosis/Indication Diagnosis SNOMED-CT Code Diagnosis ICD10 Code Diagnosis Note [id number] MD KALPESH Sunshine, [facility], [address] [place] [address] 03/09/2019 10:31:52 03/09/2019 11:22:28 [id number] [facility] [address] [place] [address] 03/15/2019 08:58:58 03/15/2019 09:30:39 [id number] Zuhair Brewer MD , [facility], [address] [place] [address] 03/31/2019 12:12:35 03/31/2019 14:01:59 [id number] Eric Tavarez MD , [facility], [address] [place] [address] 04/03/2019 13:44:39 04/03/2019 14:06:18 [id number] Zuhair Brewer MD , [facility], [address] [place] [address] 04/07/2019 13:47:31 04/07/2019 17:30:09 [id number] Nubia Francois [facility] [address] [place] [address] 04/15/2019 09:13:11 04/15/2019 10:51:54 [id number] Zuhair Brewer MD , [facility], [address] [place] [address] 04/21/2019 16:49:22 04/22/2019 10:29:44 [id number] Zuhair Brewer MD [facility], [address] [place] [address] 05/05/2019 11:18:54 05/05/2019 11:55:27 [id number] Zuhair Brewer MD , [facility], [address] [place] [address] 05/26/2019 11:24:25 05/26/2019 16:37:22 [id number] Zuhair Brewer MD , [facility], [address] [place] [address] 06/16/2019 11:01:05 06/16/2019 11:41:28 [id number] Zuhair Brewer MD , [facility], [address] [place] [address] 07/14/2019 11:18:13 07/14/2019 12:06:22 [id number] RICK Gutierrez , [facility], [address] [place] [address] 07/20/2019 13:31:51 07/20/2019 13:58:24 [id number] Zuhair Brewer MD , [facility], [address] [facility] [place] [address] 08/10/2019 14:51:31 08/10/2019 15:37:22 [id number] Zuhair Brewer MD , [facility], [address] [place] [address] 09/06/2019 12:02:59 09/06/2019 12:58:37 [id number] Zuhair Brewer MD , [facility], [address] [place] [address] 10/04/2019 12:00:03 10/04/2019 12:54:33 [id number] Ken Galindo MD , [facility], [address] [place] [address] 10/14/2019 17:32:42 10/19/2019 14:47:17 [id number] Zuhair Brewer MD , [facility], [address] [place] [address] 11/30/2019 08:11:24 11/30/2019 12:03:16 [id number] Charles Peter MD [facility] [address] [place] [address] 12/30/2019 13:05:40 12/31/2019 09:05:33 [id number] Zuhair Brewer MD , [facility], [address] [place] [address] 02/07/2020 10:45:31 02/10/2020 14:09:38 [id number] Ken Galindo MD , [facility], [address] [place] [address] 02/15/2020 08:03:39 02/16/2020 14:19:34 [id number] Charles Peter MD [facility] [address] [place] [address] 02/29/2020 15:46:43 03/01/2020 09:39:09 [id number] Zuhair Brewer MD , [facility], [address] [place] [address] 04/03/2020 10:45:18 04/04/2020 14:53:12 [id number] Charles Peter MD [facility] [address] [place] [address] 05/03/2020 15:51:38 05/04/2020 07:35:01 [id number] Zuhair Brewer MD , [facility], [address] [place] [address] 05/29/2020 15:43:03 05/30/2020 10:25:36 [id number] Charles Peter MD , [facility] [address] [place] [address] 05/31/2020 15:34:53 05/31/2020 16:21:36 [id number] Ken Galindo MD , [facility], [address] [place] [address] 06/14/2020 08:19:49 06/15/2020 11:49:45 [id number] Zuhair Brewer MD , [facility], [address] [place] [address] 07/03/2020 11:06:51 07/27/2020 15:13:24 [id number] Zuhair Brewer MD , [facility], [address] [place] [address] 07/31/2020 08:21:56 08/01/2020 14:15:09 [id number] Charles Peter MD , [facility] [address] [place] [address] 08/22/2020 14:36:14 08/23/2020 12:19:14 [id number] Zuhair Brewer MD , [facility], [address] [place] [address] 09/18/2020 13:53:23 09/19/2020 08:52:56 [id number] Hemanth Paulino MD [facility], [address] [address] 10/05/2020 12:42:21 10/05/2020 18:17:26 [id number] MD KALPESH Mccloud, [facility], [address] [place] [address] 10/13/2020 15:21:56 10/16/2020 10:32:22 [id number] Zuhair Brewer MD , [facility], [address] [place] [address] 11/10/2020 09:37:28 11/10/2020 15:32:46 [id number] Eric Tavarez MD , [facility], [address] [place] [address] 12/01/2020 14:01:06 12/04/2020 09:50:26 [id number] Eric Tavarez MD , [facility], [address] [place] [address] 12/20/2020 12:09:44 12/21/2020 10:50:59 [id number] Eric Tavarez MD , [facility], [address] [place] [address] 02/09/2021 13:42:31 02/09/2021 14:11:56 [id number] Zuhair rBewer MD , [facility], [address] [place] [address] 04/06/2021 08:31:42 04/06/2021 09:13:08 [id number] Zuhair Brewer MD , [facility], [address] [place] [address] 06/01/2021 12:08:06 06/01/2021 12:35:02 [id number] Zuhair Brewer MD , [facility], [address] [place] [address] 07/16/2021 15:28:04 07/16/2021 16:06:34 [id number] Eric Tavarez MD , [facility], [address] [place] [address] 09/11/2021 11:34:21 09/11/2021 12:13:00 [id number] Eric Tavarez MD , [facility], [address] [place] [address] 10/09/2021 14:48:20 10/11/2021 15:41:29 [id number] Eric Tavarez MD , [facility], [address] [place] [address] 11/15/2021 15:01:35 11/17/2021 08:38:09 [id number] Eric Tavarez MD , [facility], [address] [place] [address] 01/08/2022 15:32:14 01/08/2022 16:05:48 [id number] Eric Tavarez MD , [facility], [address] [place] [address] 03/08/2022 09:50:59 03/08/2022 10:30:46 [id number] Eric Tavarez MD , [facility], [address] [place] [address] 05/13/2022 10:04:24 05/13/2022 15:11:04 [id number] Eric Tavarez MD , [facility], [address] [place] [address] 07/11/2022 09:02:55 07/11/2022 09:33:19 [id number] Eric Tavarez MD , [facility], [address] [place] [address] 09/02/2022 11:52:07 09/02/2022 13:53:50 [id number] Anne Perdomo MD , [facility], [address] [place] [address] 09/09/2022 16:32:09 09/10/2022 09:06:04 [id number] Leydi Cannon MD , [facility], [address] [place] [address] 09/16/2022 14:40:59 09/16/2022 17:38:39 [id number] Eric Tavarez MD , [facility], [address] [place] [address] 11/28/2022 14:23:25 11/28/2022 17:24:05 [id number] Eric Tavarez MD , [facility], [address] [place] [address] 12/12/2022 11:00:19 12/18/2022 14:24:53 [id number] Eric Tavarez MD , [facility], [address] [place] [address] 01/07/2023 13:42:43 01/07/2023 17:00:[id number], LDN [facility] [address] [place] [address] 02/04/2023 09:03:39 02/04/2023 20:45:45 [id number] Eric Tavarez MD , [facility], [address] [place] [address] 02/04/2023 14:33:54 02/04/2023 16:59:18 [id number] Rabia Lanier DO , [facility], [address] [place] [address] 03/04/2023 10:04:27 03/04/2023 16:19:49 [id number] Rabia Lanier DO , [facility], [address] [place] [address] 06/16/2023 08:22:14 06/16/2023 09:24:33 [id number] Rabia Lanier DO , [facility], [address] [place] [address] 09/15/2023 15:01:08 09/22/2023 10:08:49 [id number] Rabia Lanier DO , [facility], [address] [place] [address] 10/13/2023 09:30:21 10/13/2023 16:30:17 [id number] Hem[facility]ino MD [facility] [address] [facility] [place] [address] 10/22/2023 15:46:00 10/23/2023 13:31:23 [id number] Anne Perdomo MD , [facility], [address] [place] [address] 11/04/2023 14:05:40 11/04/2023 19:27:33 [id number] Rabia Lanier DO , [facility], [address] [place] [address] 12/11/2023 10:03:57 12/11/2023 16:19:07 [id number] Jakob Lemus MD Sports Medicine, [facility] [address] [place] [address] 12/16/2023 15:52:00 12/16/2023 16:47:04 [id number] Hemanth Paulino MD Endocrino megan, [address] [address] 12/23/2023 07:32:20 12/23/2023 14:57:31 [id number] Hemanth Paulino MD Endocrino [address] [place] [address] 12/31/2023 14:38:17 01/01/2024 07:11:48 [id number] Jakob Lemus MD Sports Medicine, [address] [address] 01/21/2024 14:45:37 01/22/2024 09:46:41 [id number] Leydi Cannon MD FP, [facility], [address] [place] [address] 02/27/2024 10:40:39 03/04/2024 14:41:13 [id number] Rabia Lanier DO FP, [facility], [address] [place] [address] 05/13/2024 09:32:44 05/14/2024 11:33:01 [id number] Rabia Lanier DO FP, [facility], [address] [place] [address] 07/06/2024 14:16:08 07/09/2024 14:22:13 [id number] Rabia Lanier DO FP, [facility], [address] [place] [address] 10/28/2024 12:04:26 10/29/2024 12:25:54 [id number] Rabia Lanier DO FP, [facility], [address] [place] [address] 12/06/2024 13:32:41 12/14/2024 13:31:46 [id number] Rabia Lanier DO FP, [facility], [address] [place] [address] 12/30/2024 14:48:36 01/03/2025 13:16:54 [id number] Rabia Lanier DO FP, [facility], [address] [place] [address] 01/03/2025 14:18:42 01/07/2025 10:17:18 [id number] Rabia Lanier DO FP, [facility], [address] [place] [address] 01/06/2025 10:18:12 01/06/2025 10:43:03 [id number] Carlo Sosa MD Endoscopy , [facility] [address] [place] [address] 03/07/2025 08:53:26 03/07/2025 13:51:15 Health Concerns Section Related Observation LastModified by Organization Detai ls LastModified Time None Recorded Concern Status LastModified by Organization Details LastModified Time None Recorded Advance Directives Directive None Recorded Payers Insurance Date Sequence Insurance Name Policy Number Policy Hawthorne Covered Member ID Hawthorne Member ID Guarantor Name 03/10/2025 1 [place] [id number] Sarmad Chandra [id number] Twyla Geoffrion 03/10/2025 1 [employer] [id number] Sarmad Chandra [id number] Twyla Geoffrion 04/21/2019 1 [place] [id number] Sarmad Chandra [id number] Twyla Geoffrion 09/12/2020 1 [employer] Chandra [id number] Twyla Geoffrion OBGyn Episode No OBEpisode recorded.
== END 2025-03-17 08:06 | disposition home or self-care (01) ==
LOC: HO.MAMMO 08:05
PROVIDERS: PCP Nurse Practitioner; Visit Provider Nurse Practitioner
DX: Z78.0 Asymptomatic menopausal state (principal)
CPT/HCPCS: 77080

== ENCOUNTER → 2025-03-17 08:15 | Outpatient (BNV) | payer BC, SELFPAY | PROVIDERS: PCP Nurse Practitioner; Visit Provider Radiology Diagnostic Radiology | DX: E28.39 Other primary ovarian failure (principal) | CPT/HCPCS: 77080 ==